=== PATIENT | female | born 1945 | race African-American/Black ===

== ENCOUNTER 2018-07-28 11:29 | Inpatient (IN) | payer MEDICARE, BC ==
[~2018-07-28] VITALS: Ht 165.1 cm; Wt 86.2 kg
[2018-07-28 11:36] VITALS: BP 138/85
[2018-07-28] MEDS ORDERED: Dicyclomine HCl 10mg/5ml oral soln ORAL ONE (12:30)
[2018-07-28] MEDS ORDERED: Mylanta II UD 30ml ORAL ONE (12:30)
[2018-07-28] MEDS ORDERED: Lidocaine 2% Visc 15ml soln ORAL ONE (12:30)
--- NOTE | 2018-07-28 12:30 | Emergency Room Report ---
History of Present Illness General Chief Complaint: Abdominal Pain Source: Patient (Margarita Rosas) Present Illness HPI 73-year-old female presents to the emergency department complaining of 8 out of 10 in severity cramping abdominal pain with associated nausea, vomiting and diarrhea. Patient denies blood in the vomit or stool. Patient denies black tarry stools, recent travel or ill contacts with similar symptoms. Patient denies fevers or chills. Patient states that she has been unable to keep anything down for approximately 3 days and her PCP sent her to the emergency department for evaluation. She reports only significant past medical history is high blood pressure. Patient denies dizziness, chest pain, shortness of breath, altered mental status, sudden severe headache, dysuria, hematuria, urinary frequency. (Margarita Rosas) Allergies: Coded Allergies: No Known Allergies (Unverified , 07/28/18) Patient History Past Medical History: see triage record, HTN Past Surgical History: none Pertinent Family History: none Now: No Reviewed Nursing Documentation: PMH: Agreed; PSxH: Agreed (Margarita Rosas) Nursing Documentation-PMH Hx Hypertension: Yes (Margarita Rosas) Review of Systems All Other Systems: negative except mentioned in HPI (Margarita Rosas) Physical Exam Vital Signs Date Time Temp Pulse Resp B/P (MAP) Pulse Ox O2 Delivery O2 Flow Rate FiO2 07/28/18 11:36 97.3 65 18 138/85 98 Room Air Sp02 EP Interpretation: reviewed, normal General Appearance: no apparent distress, alert, GCS 15, non-toxic Head: normocephalic, atraumatic Eyes: bilateral eye normal inspection, bilateral eye PERRL ENT: hearing grossly normal, normal voice Neck: full range of motion Respiratory: lungs clear, normal breath sounds, speaking full sentences Cardiovascular #1: regular rate, rhythm Gastrointestinal: normal bowel sounds, soft, non-distended, no guarding, other - RUQ TTP-mild Genitourinary: normal inspection, no CVA tenderness Musculoskeletal: back normal, gait/station normal, normal range of motion, non- tender Neurologic: alert, oriented x3, responsive, motor strength/tone normal, sensory intact, speech normal, grossly normal Psychiatric: judgement/insight normal Skin: normal color, no rash, warm/dry, well hydrated (Margarita Rosas) Medical Decision Making PA Attestation Dr. James is my supervising Physician whom patient management has been discussed with. (Margarita Rosas) Diagnostic Impression: Primary Impression: Dehydration, moderate Additional Impression: Abdominal pain Qualified Codes: R10.30 - Lower abdominal pain, unspecified ER Course 73-year-old female presents to the emergency department complaining of 8 out of 10 in severity cramping abdominal pain with associated nausea, vomiting and diarrhea. Patient denies blood in the vomit or stool. Patient denies black tarry stools, recent travel or ill contacts with similar symptoms. Patient denies fevers or chills. Patient states that she has been unable to keep anything down for approximately 3 days and her PCP sent her to the emergency department for evaluation. She reports only significant past medical history is high blood pressure. Patient denies dizziness, chest pain, shortness of breath, altered mental status, sudden severe headache, dysuria, hematuria, urinary frequency. Ddx considered but are not limited to Diverticulitis, acute appy, diarrhea,UC, PUD, GE, pancreatitis, gallstone, hypokalemia just to name a few. Vital signs: are WNL, pt. is afebrile H&PE are most consistent with dehydration secondary to GI loss- Vomiting and Diarrhea ORDERS: -CBC, CMP, lipase, UA: Unremarkable, Cr. of 1.4 and some protein in the urine. ED INTERVENTIONS: -- 1000NS, Zofran 4mg, and Pepcid 20mg PO DISPOSITION: at this time pt. will be admitted to Dr. Good for Dehydration. Dr. Good agreed to admit the pt. and to continue pt. care management. Labs Test 07/28/18 12:25 07/28/18 13:50 White Blood Count 7.2 K/UL (4.8-10.8) Red Blood Count 4.75 M/UL (4.20-5.40) Hemoglobin 14.1 G/DL (12.0-16.0) Hematocrit 42.0 % (37.0-47.0) Mean Corpuscular Volume 88 FL (80-99) Mean Corpuscular Hemoglobin 29.7 PG (27.0-31.0) Mean Corpuscular Hemoglobin Concent 33.6 G/DL (32.0-36.0) Red Cell Distribution Width 12.9 % (11.6-14.8) Platelet Count 200 K/UL (150-450) Mean Platelet Volume 7.3 FL (6.5-10.1) Neutrophils (%) (Auto) 41.1 % (45.0-75.0) Lymphocytes (%) (Auto) 45.0 % (20.0-45.0) Monocytes (%) (Auto) 10.4 % (1.0-10.0) Eosinophils (%) (Auto) 2.7 % (0.0-3.0) Basophils (%) (Auto) 0.8 % (0.0-2.0) Sodium Level 142 MMOL/L (136-145) Potassium Level 4.0 MMOL/L (3.5-5.1) Chloride Level 106 MMOL/L (98-107) Carbon Dioxide Level 27 MMOL/L (21-32) Anion Gap 9 mmol/L (5-15) Blood Urea Nitrogen 15 mg/dL (7-18) Creatinine 1.4 MG/DL (0.55-1.30) Estimat Glomerular Filtration Rate mL/min (>60) Glucose Level 103 MG/DL (74-106) Calcium Level 9.5 MG/DL (8.5-10.1) Total Bilirubin 0.9 MG/DL (0.2-1.0) Aspartate Amino Transf (AST/SGOT) 20 U/L (15-37) Alanine Aminotransferase (ALT/SGPT) 20 U/L (12-78) Alkaline Phosphatase 103 U/L (46-116) Total Protein 8.0 G/DL (6.4-8.2) Albumin 3.9 G/DL (3.4-5.0) Globulin 4.1 g/dL Albumin/Globulin Ratio 1.0 (1.0-2.7) Lipase 88 U/L (73-393) Urine Color Brown Urine Appearance Slightly cloudy Urine pH 5 (4.5-8.0) Urine Specific [place] 1.020 (1.005-1.035) Urine Protein 2+ (NEGATIVE) Urine Glucose (UA) Negative (NEGATIVE) Urine Ketones 1+ (NEGATIVE) Urine Blood Negative (NEGATIVE) Urine Nitrite Negative (NEGATIVE) Urine Bilirubin 1+ (NEGATIVE) Urine Ictotest Negative (NEGATIVE) Urine Urobilinogen 4 MG/DL (0.0-1.0) Urine Leukocyte Esterase 1+ (NEGATIVE) Urine RBC 0 /HPF (0 - 2) Urine WBC 0-2 /HPF (0 - 2) Urine Squamous Epithelial Cells Occasional /LPF Urine Bacteria None /HPF (NONE) (Margarita Rosas) ER Course This patient was discussed with Dr. Lucas who agreed with treatment plan. (Kwadwo James MD) Last Vital Signs Date Time Temp Pulse Resp B/P (MAP) Pulse Ox O2 Delivery O2 Flow Rate FiO2 07/28/18 11:36 97.3 65 18 138/85 98 Room Air (Margarita Rosas) Disposition: ADMITTED INPATIENT Condition: Serious Margarita Rosas Jul 28, 2018 12:30 Kwadwo James MD Jul 28, 2018 21:36
--- NOTE | 2018-07-28 13:01 | NUR ---
ED Nurse Note: attempted to collect urine, patient stated that she does not feel the urge to go now. NS bolus going in, will try again.
[2018-07-28 13:11] LABS: ANION GAP 9 mmol/L (5-15); BLOOD UREA NITROGEN 15 mg/dL (7-18); CALCIUM 9.5 MG/DL (8.5-10.1); CARBON DIOXIDE 27 MMOL/L (21-32); CHLORIDE 106 MMOL/L (98-107); CREATININE 1.4 MG/DL (0.55-1.30); SODIUM 142 MMOL/L (136-145)
[2018-07-28 13:16] LABS: ALANINE AMINOTRANSFERASE 20 U/L (12-78); ALBUMIN 3.9 G/DL (3.4-5.0); ALKALINE PHOSPHATASE 103 U/L (46-116); ASPARTATE AMINO TRANSFERASE 20 U/L (15-37); BASOPHILS % (AUTO) 0.8 % (0.0-2.0); BILIRUBIN,TOTAL 0.9 MG/DL (0.2-1.0); EOSINOPHILS % (AUTO) 2.7 % (0.0-3.0); HEMOGLOBIN 14.1 G/DL (12.0-16.0); MEAN CORPUSCULAR VOLUME 88 FL (80-99); MONOCYTES % (AUTO) 10.4 % (1.0-10.0); NEUTROPHILS % (AUTO) 41.1 % (45.0-75.0); PLATELET COUNT 200 K/UL (150-450); RED BLOOD COUNT 4.75 M/UL (4.20-5.40); RED CELL DISTRIBUTION WIDTH 12.9 % (11.6-14.8); WHITE BLOOD COUNT 7.2 K/UL (4.8-10.8)
[2018-07-28 13:59] LABS: APPEARANCE,URINE SLIGHTLY CLOUDY; BILIRUBIN, URINE 1+ (NEGATIVE); COLOR,URINE BROWN; GLUCOSE, URINE (UA) NEGATIVE (NEGATIVE); KETONES,URINE 1+ (NEGATIVE); LEUKOCYTE ESTERASE ,URINE 1+ (NEGATIVE); NITRITE,URINE NEGATIVE (NEGATIVE); PH,URINE 5 (4.5-8.0); PROTEIN,URINE 2+ (NEGATIVE); UROBILINOGEN,URINE 4 MG/DL (0.0-1.0)
--- NOTE | 2018-07-28 15:15 | NUR ---
ED Nurse Note: belonging list checked and done, signed by the patient. her cane was taken home by her daughter. called [facility], spoke with Galileo HAMILTON, the nurse is going to be Alejo HAMILTON, she is on lunch, will call back later.
--- NOTE | 2018-07-28 15:59 | NUR ---
ED Nurse Note: report given to Dimple HAMILTON Addendum: 07/28/18 at 1950 by MAK ROBERT Musa. Patient went up to [facility]E accompanied by PRASHANTH Coffman
[2018-07-28] MEDS ORDERED: ATENOLOL25 MG ORAL (16:04)
[2018-07-28] MEDS ORDERED: PRAVACHOL20 MG ORAL (16:04)
[2018-07-28] MEDS ORDERED: AMLODIPINE BES2.5 MG ORAL (16:05)
[2018-07-28 17:00] VITALS: BP 137/78
--- NOTE | 2018-07-28 17:42 | NUR ---
NURSE NOTES: received patient A/A/Ox4, verbally responsive from ED via wheelchair. admission profile and personal belongings noted. patient vomitted 2x upon arriving. Instructed to refrain from drinking soda and consuming crackers until we hear from PMD. Patient brought with her subway drink (soda) and stated that she consumed some crackers prior arriving on the unit and started vomitting with moderate amount. skin is intact. No acute resp distress noted. NO c/o pain/discomfort noted. awaiting for Dr Good for admitting orders. will cont to monitor
--- NOTE | 2018-07-28 18:10 | General Progress Note ---
Assessment/Plan Assessment/Plan Assessment - N/V/D - ? gastroenteritis - RA - SIBO - HTN - Obesity - mild diverticulosis - Fibromyalgia - chronic constipation - h/o anemia - smoking history Recommendations - po as tolerated - check stool studies - anti- emetics - IV hydration Subjective Allergies: Coded Allergies: No Known Allergies (Unverified , 07/28/18) Objective Last 24 Hour Vital Signs Date Time Temp Pulse Resp B/P (MAP) Pulse Ox O2 Delivery O2 Flow Rate FiO2 07/28/18 17:22 Room Air 07/28/18 17:20 97.3 68 18 138/85 98 Room Air 07/28/18 12:56 65 18 Room Air 07/28/18 11:36 97.3 65 18 138/85 98 Room Air 07/28/18 11:36 97.3 65 18 138/85 98 Room Air Laboratory Tests 07/28/18 12:25: White Blood Count 7.2, Red Blood Count 4.75, Hemoglobin 14.1, Hematocrit 42.0, Mean Corpuscular Volume 88, Mean Corpuscular Hemoglobin 29.7, Mean Corpuscular Hemoglobin Concent 33.6, Red Cell Distribution Width 12.9, Platelet Count 200, Mean Platelet Volume 7.3, Neutrophils (%) (Auto) 41.1L, Lymphocytes (%) (Auto) 45.0, Monocytes (%) (Auto) 10.4H, Eosinophils (%) (Auto) 2.7, Basophils (%) ( Auto) 0.8, Sodium Level 142, Potassium Level 4.0, Chloride Level 106, Carbon Dioxide Level 27, Anion Gap 9, Blood Urea Nitrogen 15, Creatinine 1.4H, Estimat Glomerular Filtration Rate , Glucose Level 103, Calcium Level 9.5, Total Bilirubin 0.9, Aspartate Amino Transf (AST/SGOT) 20, Alanine Aminotransferase ( ALT/SGPT) 20, Alkaline Phosphatase 103, Total Protein 8.0, Albumin 3.9, Globulin 4.1, Albumin/Globulin Ratio 1.0, Lipase 88 07/28/18 13:50: Urine Color Brown, Urine Appearance Slightly cloudy, Urine pH 5, Urine Specific [place] 1.020, Urine Protein 2+H, Urine Glucose (UA) Negative, Urine Ketones 1+H , Urine Blood Negative, Urine Nitrite Negative, Urine Bilirubin 1+H, Urine Ictotest Negative, Urine Urobilinogen 4H, Urine Leukocyte Esterase 1+H, Urine RBC 0, Urine WBC 0-2, Urine Squamous Epithelial Cells Occasional, Urine Bacteria None Height (Feet): 5 Height (Inches): 4.00 Weight (Pounds): 190 Jesus Zuleta MD Jul 28, 2018 18:10
--- NOTE | 2018-07-28 18:22 | NUR ---
NURSE NOTES: admission orders obtained. patient is calm and resting in bed comfortably. will cont to monitor.
--- NOTE | 2018-07-28 19:19 | NUR ---
HAND-OFF: Report given to
--- NOTE | 2018-07-28 19:30 | NUR ---
NURSE NOTES: Received patient in no apparent distress. A&OX4. IV site patent and intact. C/o abdominal pain, 02/06. Bed in lowest position. Call light within reach. Will continue to monitor.
[2018-07-28 20:00] VITALS: BP 144/61
--- NOTE | 2018-07-28 20:30 | Consultation ---
DATE OF CONSULTATION: 07/28/2018 NOTE: "POOR AUDIO QUALITY" GASTROENTEROLOGY CONSULTATION CONSULTING PHYSICIAN: Jesus Zuleta M.D. REFERRING PHYSICIAN: 1. Maurice Good M.D. 2. Luciano Kim M.D. CHIEF COMPLAINT: I was asked to see this patient by Dr. Maurice Good and Dr. Luciano Kim, for evaluation of abdominal symptoms. HISTORY OF PRESENT ILLNESS: The patient is a pleasant 73-year-old woman, who was in her usual state of health until about 4 days ago when she started having bouts of nausea, vomiting, and diarrhea. The patient called in stating that she could not keep any food down or medicines down and therefore, she was advised to go to the nearest emergency room and now she has been admitted to the hospital. The patient did feel some lightheadedness because of vomiting. She states her daughter had some abdominal symptoms, but they were mild and resolved. She felt some chills, but no fever. She has lost 6 pounds in the past 4 days. PAST MEDICAL HISTORY: Remarkable for history of rheumatoid arthritis hypertension, obesity, mild diverticulosis, fibromyalgia, chronic constipation, history of anemia. PAST SURGICAL HISTORY: Status post left knee replacement, history of left finger surgery, status post cholecystectomy, status post partial hysterectomy, and left salpingo-oophorectomy. ALLERGIES: None. FAMILY HISTORY: Positive for colon cancer in mother. SOCIAL HISTORY: The patient is a . She has 4 children. She has rdfumja-lrng-h-day smoking history, but she quit this. She does not drink alcohol. REVIEW OF SYSTEMS: Otherwise negative. MEDICATIONS: Amlodipine 10 mg p.o. b.i.d., bupropion for smoking cessation 150 mg p.o. b.i.d., Cimzia 1 injection monthly, enalapril 10 mg p.o. b.i.d., Amitiza 8 mcg p.o. b.i.d. PHYSICAL EXAMINATION: GENERAL: This is a pleasant woman seen in the emergency room. HEENT: Normocephalic and atraumatic. Sclerae anicteric. Oropharynx clear. NECK: Supple. CHEST: Clear to auscultation. CARDIOVASCULAR: Revealed regular rate. ABDOMEN: Soft. Good bowel sounds. EXTREMITIES: Revealed no edema. LABORATORY DATA: Noted. ASSESSMENT: This patient presents with nausea, vomiting, diarrhea, and dehydration over the past 4 days. Given the acuity of her symptoms, the most typical diagnosis will be gastroenteritis, which is managed conservatively, however, she also has immunosuppression. Therefore, her stools are to be checked for various pathogens including Salmonella and Campylobacter. She is somewhat stable now, however, and therefore she can be managed off of antibiotics. RECOMMENDATIONS: 1. IV fluids. 2. Oral diet as tolerated to check stool evaluation. 3. We will hold off on antibiotics. Thank you for asking me to participate in the care of this patient. Jesus Zuleta M.D. DR: Jackeline JOB#: [id number] CC: KENDALL
[2018-07-28] MEDS: Norco 5mg/325mg tab ORAL PRN (20:31)
[2018-07-28] MEDS: Heparin 5000 units/ml inj SUBQ SCH (20:39)
[2018-07-28] MEDS: D5 1/2NS 1,000 ML IV SCH (20:41)
--- NOTE | 2018-07-28 20:47 | NUR ---
NURSE NOTES: Patient requested IV pain medication instead of oral pain medication due to nausea & vomiting. Call Dr. Good, obtained order of Morphine 2mg IVP prn q4hrs.
[2018-07-28] MEDS ORDERED: Morphine Sulfate 4mg/ml Inj (IV/IM USE ONLY) IVP PRN (21:00)
[2018-07-29] VITALS: BP 124/58
[2018-07-29 04:00] VITALS: BP 123/62
--- NOTE | 2018-07-29 07:11 | NUR ---
HAND-OFF: Report given to Iliana JONES.
[2018-07-29 07:15] LABS: BASOPHILS % (AUTO) 0.6 % (0.0-2.0); EOSINOPHILS % (AUTO) 3.6 % (0.0-3.0); HEMATOCRIT 35.7 % (37.0-47.0); HEMOGLOBIN 12.1 G/DL (12.0-16.0); LYMPHOCYTES % (AUTO) 53.1 % (20.0-45.0); MEAN CORPUSCULAR VOLUME 88 FL (80-99); MONOCYTES % (AUTO) 11.5 % (1.0-10.0); NEUTROPHILS % (AUTO) 31.2 % (45.0-75.0); PLATELET COUNT 166 K/UL (150-450); RED BLOOD COUNT 4.06 M/UL (4.20-5.40); RED CELL DISTRIBUTION WIDTH 12.9 % (11.6-14.8); WHITE BLOOD COUNT 5.8 K/UL (4.8-10.8)
[2018-07-29 08:09] VITALS: BP 153/83
[2018-07-29 08:15] LABS: ALBUMIN 3.2 G/DL (3.4-5.0); ALBUMIN/GLOBULIN RATIO 0.9 (1.0-2.7); ALKALINE PHOSPHATASE 88 U/L (46-116); ANION GAP 3 mmol/L (5-15); ASPARTATE AMINO TRANSFERASE 19 U/L (15-37); BILIRUBIN,TOTAL 0.8 MG/DL (0.2-1.0); BLOOD UREA NITROGEN 7 mg/dL (7-18); CALCIUM 8.9 MG/DL (8.5-10.1); CARBON DIOXIDE 29 MMOL/L (21-32); CHLORIDE 110 MMOL/L (98-107); CREATININE 1.3 MG/DL (0.55-1.30); PHOSPHORUS 3.6 MG/DL (2.5-4.9); SODIUM 142 MMOL/L (136-145)
[2018-07-29] MEDS: D5 1/2NS 1,000 ML IV SCH ×2 (08:19→21:55)
[2018-07-29] MEDS: Atenolol 25mg tab ORAL SCH ×2 (08:19→17:01)
[2018-07-29] MEDS: Heparin 5000 units/ml inj SUBQ SCH ×2 (08:24→21:54)
[2018-07-29 08:39] LABS: ALANINE AMINOTRANSFERASE 20 U/L (12-78)
[2018-07-29 12:08] VITALS: BP 153/68
[2018-07-29] MEDS ORDERED: Isovue-300 100ml vial INJ PRN (13:15)
--- NOTE | 2018-07-29 13:17 | History & Physical ---
History and Physical History & Physicial Dictated for Int Med-Dr Good no. [id number]. Salvador Rachel MD Jul 29, 2018 13:17
--- NOTE | 2018-07-29 14:00 | NUR ---
NURSE NOTES: received patient, report given by ROBERT Richardson. Patient is in bed, awake, accompanied by family members. Patient receive IVF through LAC access, no sign of leakage or infiltration. Bed is locked at the lowest position possible, call light within easy reach, siderails up x2. Will continue to monitor patient and follow up with the plan of care.
[2018-07-29 15:53] VITALS: BP 146/70
--- NOTE | 2018-07-29 16:30 | History and Physical Report ---
DATE OF ADMISSION: 07/28/2018 CHIEF COMPLAINT: The patient is a 73-year-old female, who presents with chief complaint of nausea, vomiting, diarrhea, and abdominal pain. HISTORY OF PRESENT ILLNESS: It began on 07/24/2018. The patient began to experience nausea and vomiting. The patient is unable to tolerate liquids or solids. The patient states she vomits everything that she eats or drinks. The patient also has watery diarrhea. The patient has diarrhea twice daily. The patient also complains of abdominal cramping and pain. Abdominal pain seems to be localized to the right lower quadrant. The patient presented to [facility]. The patient was admitted for nausea, vomiting, diarrhea, and right lower quadrant pain. REVIEW OF SYSTEMS: CONSTITUTIONAL: The patient denies weight loss or weight gain. The patient denies fevers or chills. HEENT: The patient denies ear or throat pain. The patient denies headache. CARDIOVASCULAR: The patient denies palpitations or chest pain. CHEST: The patient denies wheeze or shortness of breath. ABDOMEN: The patient complains of nausea, vomiting, diarrhea, and abdominal pain as above. The patient denies constipation. GENITOURINARY: The patient denies dysuria or increased frequency of urination. NEUROMUSCULAR: The patient denies seizures or generalized weakness. PAST MEDICAL HISTORY: Significant for hypertension. PAST SURGICAL HISTORY: Significant for: 1. Open cholecystectomy 40 years ago. 2. Bilateral knee replacement. 3. Reconstruction of the left knee. 4. Lumbar laminectomy. CURRENT MEDICATIONS: 1. Amlodipine 2.5 mg p.o. daily. 2. Atenolol 25 mg p.o. twice daily. 3. Pravachol 20 mg p.o. nightly. ALLERGIES: No known drug allergies. SOCIAL HISTORY: The patient is a and lives alone. The patient denies tobacco use, having quit in February 2018. The patient admits to social alcohol use. PHYSICAL EXAMINATION: VITAL SIGNS: Temperature 97.8, respirations 19, pulse 54 to 57, and blood pressure 123 to 153 over 62 to 83. GENERAL: The patient is a well-developed and well-nourished female, in no apparent distress. HEENT: Eyes, pupils are equal and responsive to light and accommodation. Extraocular movements are intact. NECK: Supple. No lymphadenopathy. CHEST: Lungs are clear to auscultation bilaterally without wheezes or rales. CARDIOVASCULAR: Regular rhythm and rate. S1-S2 are normal without murmurs, rubs, or gallops. ABDOMEN: Soft, nondistended with decreased bowel sounds. There is tenderness to palpation to right lower quadrant. No evidence of rebound or guarding noted. EXTREMITIES: Negative for clubbing, cyanosis, or edema. RECTAL/GENITAL: Refused. NEUROLOGIC: Cranial nerves II through XII are grossly intact without focal deficits. Motor strength is 5/5 bilaterally. Deep tendon reflexes are 2+ plantar. LABORATORY STUDIES: WBC 7.3, hemoglobin 14.1, hematocrit 42.0, and platelets 200,000. Sodium 142, potassium 4.0, chloride 106, CO2 27, BUN 15, and creatinine 1.4. Glucose 103. Liver function tests are within normal limits. Urinalysis showed 2+ protein, 1+ ketones, 1+ bilirubin, 4+ urobilinogen, 1+ leukocyte esterase with 0 to 2 wbc's. ASSESSMENT: This is a 73-year-old female with: 1. Abdominal pain. 2. Nausea and vomiting. 3. Diarrhea. 4. Right lower quadrant pain. 5. Hypertension. TREATMENT: 1. Abdominal pain/nausea/vomiting/diarrhea. A Gastroenterology consultation has been obtained with Dr. Zuleta. The patient is currently receiving intravenous Zofran for nausea and vomiting. Stool cultures are pending. We will follow recommendations of Gastroenterology. 2. Right lower quadrant pain. The patient's white count is within normal limits. Appendicitis has been ruled out with white count. A CT scan of the abdomen and pelvis is pending. 3. Hypertension. Continue amlodipine and atenolol as above. Salvador Rachel M.D. DR: BLANQUITA JOB#: [id number] CC:
--- NOTE | 2018-07-29 18:47 | General Progress Note ---
Assessment/Plan Assessment/Plan Assessment - N/V/D - ? gastroenteritis - RA - SIBO - HTN - Obesity - mild diverticulosis - Fibromyalgia - chronic constipation - h/o anemia - smoking history Recommendations - po as tolerated - check stool studies - still pending - add PPI IV - anti- emetics - IV hydration Subjective Allergies: Coded Allergies: No Known Allergies (Unverified , 07/28/18) Subjective vomited again this am no further diarrhea no pain on clears Objective Last 24 Hour Vital Signs Date Time Temp Pulse Resp B/P (MAP) Pulse Ox O2 Delivery O2 Flow Rate FiO2 07/29/18 17:01 71 146/70 07/29/18 15:53 97.8 71 18 146/70 (95) 97 07/29/18 12:08 97.3 56 19 153/68 (96) 98 07/29/18 10:37 98.2 07/29/18 09:00 Room Air 07/29/18 08:19 57 153/83 07/29/18 08:19 57 153/83 07/29/18 08:09 98.2 57 18 153/83 (106) 99 07/29/18 04:00 97.8 54 19 123/62 (82) 98 07/29/18 00:00 97.7 56 18 124/58 (80) 97 07/28/18 21:14 Room Air 07/28/18 21:00 Room Air 07/28/18 20:00 97.9 54 18 144/61 (88) 98 Intake and Output 07/28/18 07/29/18 18:59 06:59 Intake Total 750 ml Balance 750 ml IV Total 750 ml # Voids 4 Laboratory Tests 07/29/18 05:55: White Blood Count 5.8, Red Blood Count 4.06L, Hemoglobin 12.1, Hematocrit 35.7L , Mean Corpuscular Volume 88, Mean Corpuscular Hemoglobin 29.9, Mean Corpuscular Hemoglobin Concent 34.0, Red Cell Distribution Width 12.9, Platelet Count 166, Mean Platelet Volume 7.1, Neutrophils (%) (Auto) 31.2L, Lymphocytes ( %) (Auto) 53.1H, Monocytes (%) (Auto) 11.5H, Eosinophils (%) (Auto) 3.6H, Basophils (%) (Auto) 0.6, Sodium Level 142, Potassium Level 4.0, Chloride Level 110H, Carbon Dioxide Level 29, Anion Gap 3L, Blood Urea Nitrogen 7, Creatinine 1.3, Estimat Glomerular Filtration Rate , Glucose Level 94, Calcium Level 8.9, Phosphorus Level 3.6, Magnesium Level 1.9, Total Bilirubin 0.8, Aspartate Amino Transf (AST/SGOT) 19, Alanine Aminotransferase (ALT/SGPT) 20, Alkaline Phosphatase 88, Total Protein 6.7, Albumin 3.2L, Globulin 3.5, Albumin/Globulin Ratio 0.9L Height (Feet): 5 Height (Inches): 4.00 Weight (Pounds): 190 Jesus Zuleta MD Jul 29, 2018 18:47
--- NOTE | 2018-07-29 19:02 | NUR ---
NURSE NOTES: Pt resting in bed, awake and alert x4, no s/s of acute distress noted, breathing even and unlabored to room air. no complaining of nausea, bed to lowest position, call light within reach, will continue to monitor.
[2018-07-29] MEDS: Pantoprazole Inj IVP SCH (19:22)
--- NOTE | 2018-07-29 19:39 | NUR ---
HAND-OFF: Report given to ALFONSO Garber.
[2018-07-29 20:00] VITALS: BP 127/63
--- NOTE | 2018-07-29 20:52 | NUR ---
CASE MANAGEMENT: INITIAL REVIEW 07/28/2018 73 YO F PRESENTED TO OUR ED FROM HOME CC: ABD PAIN PMHx: HTN. SI:DEHYDRATION. UNABLE TO COLLECT URINE. T 97.3 HR 65 RR 18 B/P 138/85 SATS 98% ON RA CR 1.4 IS: ZOFRAN IV X1 PEPCID IV X1 NS BOLUS X1 LIDOCAINE PO X1 BENTYL PO X1 MYLANTA PO X1 PATIENT ADMITTED TO MED/SURG 07/28/2018 @ 1412 DCP: PATIENT TO BE DISCHARGED TO HOME ONCE MEDICALLY CLEARED. PLAN OF CARE: GI CONSULT 07/29/2018 SI:DEHYDRATION. UNABLE TO COLLECT URINE. T 97.8 HR 71 RR 18 B/P 146/70 SATS 97% ON RA CL 110 IS: IVF @ 75 mL/HR ATENOLOL PO BID NORVASC PO QD PROTONIX IV QD MED/SURG STATUS DCP: PATIENT TO BE DISCHARGED TO HOME ONCE MEDICALLY CLEARED. PLAN OF CARE: GI CONSULT >>>CHECK STOOL STUDIES
[2018-07-30] VITALS: BP 140/70
--- NOTE | 2018-07-30 07:43 | NUR ---
HAND-OFF: Report given to ALFONSO Tompkins.
[2018-07-30 07:46] LABS: HEMATOCRIT 38.2 % (37.0-47.0); HEMOGLOBIN 13.3 G/DL (12.0-16.0); MEAN CORPUSCULAR VOLUME 87 FL (80-99); PLATELET COUNT 153 K/UL (150-450); RED BLOOD COUNT 4.38 M/UL (4.20-5.40); RED CELL DISTRIBUTION WIDTH 13.2 % (11.6-14.8)
--- NOTE | 2018-07-30 08:00 | NUR ---
NURSE NOTES: Patient is alert and oriented,IV fluids infusing as ordered.Patient is NPO for schedule test today.No complaints at this time.Call light within reach.
[2018-07-30 08:06] LABS: ANION GAP 7 mmol/L (5-15); BLOOD UREA NITROGEN 7 mg/dL (7-18); CALCIUM 9.3 MG/DL (8.5-10.1); CARBON DIOXIDE 27 MMOL/L (21-32); CHLORIDE 108 MMOL/L (98-107); CREATININE 1.2 MG/DL (0.55-1.30); POTASSIUM 3.8 MMOL/L (3.5-5.1); SODIUM 142 MMOL/L (136-145)
[2018-07-30 08:55] VITALS: BP 142/72
[2018-07-30] MEDS: Atenolol 25mg tab ORAL SCH ×2 (09:00→21:21)
[2018-07-30] MEDS: Pantoprazole Inj IVP SCH (09:09)
[2018-07-30] MEDS: Heparin 5000 units/ml inj SUBQ SCH ×2 (09:11→21:00)
--- NOTE | 2018-07-30 12:08 | Diagnostic Imaging Report ---
Clinical Indication: Nausea, vomiting, diarrhea, and abdominal pain Technique: Patient given oral contrast. IV administration nonionic contrast. Venous phase spiral acquisition obtained through the abdomen and pelvis. Multiplanar reconstructions were generated. Total dose length product 876.05 mGycm. CTDIvol(s) 17.73 mGy. Dose reduction achieved using automated exposure control Comparison: 11/02/2012 Findings: The appendix is not definitely identified, but no findings to suggest acute appendicitis are evident. There is colonic diverticulosis. No evidence of diverticulitis. Contrast is seen throughout the entirety of the small bowel and into the ascending colon. No small bowel distention or small bowel wall thickening. There is trace free fluid in the pelvis. No free intraperitoneal gas is evident. The distal esophagus, stomach, duodenum are unremarkable. The liver is unremarkable. The gallbladder is surgically absent. No biliary ductal dilatation. The pancreas, spleen, adrenals are unremarkable. There are numerous renal cysts bilaterally. There are also bilateral subcentimeter low-attenuation renal lesions which are too small to characterize. No renal or ureteral calculi, hydronephrosis, or hydroureter. The uterus is absent, presumably postsurgically. No pelvic mass or adenopathy. The included lung bases demonstrate a 4 mm nodule at the left lung base, image 10 of series 7, also evident previously and unchanged. There is some atelectasis or scarring at the posterior medial right lung base. The bones demonstrate degenerative spondylosis changes. There is also fusion hardware bridging S1-L2. Impression: No definite acute process. No evidence of small bowel obstruction Trace free pelvic fluid. Of uncertain significance but not physiologic in a postmenopausal female Colonic diverticulosis. No evidence of diverticulitis Surgically absent uterus and gallbladder Stable and therefore presumed benign 4 mm left basilar lung nodule Bilateral renal cysts. Bilateral subcentimeter low-attenuation renal lesions, too small to characterize, most likely benign simple cysts. No further follow-up necessary Incidental findings as noted, including basilar pulmonary atelectasis, degenerative spondylosis, evidence of spinal fusion surgery The CT scanner at [facility] is accredited by the [employer] and the scans are performed using protocols designed to limit radiation exposure to as low as reasonably achievable to attain images of sufficient resolution adequate for diagnostic evaluation.
[2018-07-30 12:26] VITALS: BP 147/71
[2018-07-30] MEDS: D5 1/2NS 1,000 ML IV SCH (12:39)
--- NOTE | 2018-07-30 16:09 | Internal Med Progress Note ---
Subjective Date of Service: Jul 30, 2018 Physician Name Salvador Rachel Attending Physician Maurice Good MD Current Medications Medications (Trade) Dose Ordered Sig/Dominga Route PRN Reason Start Time Stop Time Status Last Admin Dose Admin Acetaminophen (Tylenol) 650 mg Q6H PRN ORAL Mild Pain/Temp > 100.5 07/28/18 18:15 08/27/18 18:14 Acetaminophen/ Hydrocodone Bitart ([place] 5/325) 1 tab Q6H PRN ORAL Mod-severe Pain (Pain 4-10) 07/28/18 18:15 08/04/18 18:14 07/28/18 20:31 Amlodipine Besylate (Norvasc) 2.5 mg DAILY ORAL 07/29/18 09:00 08/28/18 08:59 07/30/18 12:36 Atenolol (Tenormin) 25 mg BID ORAL 07/29/18 09:00 08/28/18 08:59 07/29/18 17:01 Barium Sulfate (Readi-Cat 2) 450 ml NOW PRN ORAL Radiology Procedure 07/29/18 13:15 07/31/18 13:10 07/30/18 09:24 Dextrose/Sodium Chloride 1,000 ml @ 75 mls/hr [id number] IV 07/28/18 19:45 08/27/18 19:44 07/30/18 12:39 Heparin Sodium (Porcine) (Heparin 5000 units/ml) 5,000 units EVERY 12 HOURS SUBQ 07/28/18 21:00 08/27/18 20:59 07/30/18 09:11 Morphine Sulfate (Morphine Sulfate) 2 mg Q4H PRN IVP Severe Pain (Pain Scale 7-10) 07/28/18 21:00 08/04/18 20:59 07/29/18 10:07 Ondansetron HCl (Zofran) 4 mg EVERY 4 HOURS PRN IVP Nausea & Vomiting 07/28/18 18:15 08/27/18 18:14 07/28/18 20:28 Pantoprazole (Protonix) 40 mg DAILY IVP 07/29/18 18:47 08/28/18 18:46 07/30/18 09:09 Allergies: Coded Allergies: No Known Allergies (Unverified , 07/28/18) ROS Limited/Unobtainable: No Constitutional: Reports: no symptoms HEENT: Reports: no symptoms Cardiovascular: Reports: no symptoms Respiratory: Reports: no symptoms Gastrointestinal/Abdominal: Reports: diarrhea, nausea, vomiting Genitourinary: Reports: no symptoms Neurologic/Psychiatric: Reports: no symptoms Subjective 73 YO F admitted with abdominal pain, nausea and diarrhea. Cover for Int Zurdo Good Objective Last Vital Signs Date Time Temp Pulse Resp B/P (MAP) Pulse Ox O2 Delivery O2 Flow Rate FiO2 07/30/18 12:36 59 147/71 07/30/18 12:26 97.2 18 95 07/30/18 09:00 Room Air Laboratory Tests Test 07/30/18 06:45 White Blood Count 5.0 K/UL (4.8-10.8) Red Blood Count 4.38 M/UL (4.20-5.40) Hemoglobin 13.3 G/DL (12.0-16.0) Hematocrit 38.2 % (37.0-47.0) Mean Corpuscular Volume 87 FL (80-99) Mean Corpuscular Hemoglobin 30.4 PG (27.0-31.0) Mean Corpuscular Hemoglobin Concent 34.8 G/DL (32.0-36.0) Red Cell Distribution Width 13.2 % (11.6-14.8) Platelet Count 153 K/UL (150-450) Mean Platelet Volume 7.4 FL (6.5-10.1) Neutrophils (%) (Auto) % (45.0-75.0) Lymphocytes (%) (Auto) % (20.0-45.0) Monocytes (%) (Auto) % (1.0-10.0) Eosinophils (%) (Auto) % (0.0-3.0) Basophils (%) (Auto) % (0.0-2.0) Differential Total Cells Counted 100 Neutrophils % (Manual) 32 % (45-75) L Lymphocytes % (Manual) 54 % (20-45) H Monocytes % (Manual) 13 % (1-10) H Eosinophils % (Manual) 1 % (0-3) Basophils % (Manual) 0 % (0-2) Band Neutrophils 0 % (0-8) Platelet Estimate Adequate Platelet Morphology Normal Red Blood Cell Morphology Normal Sodium Level 142 MMOL/L (136-145) Potassium Level 3.8 MMOL/L (3.5-5.1) Chloride Level 108 MMOL/L (98-107) H Carbon Dioxide Level 27 MMOL/L (21-32) Anion Gap 7 mmol/L (5-15) Blood Urea Nitrogen 7 mg/dL (7-18) Creatinine 1.2 MG/DL (0.55-1.30) Estimat Glomerular Filtration Rate mL/min (>60) Glucose Level 95 MG/DL (74-106) Calcium Level 9.3 MG/DL (8.5-10.1) Intake and Output 07/29/18 07/30/18 19:00 07:00 Intake Total 1645 ml 900 ml Balance 1645 ml 900 ml Intake Oral 120 ml IV Total 675 ml 900 ml Other 850 ml # Voids 2 2 Objective PHYSICAL EXAMINATION: GENERAL: The patient is a well-developed and well-nourished female, in no apparent distress. HEENT: Eyes, pupils are equal and responsive to light and accommodation. Extraocular movements are intact. NECK: Supple. No lymphadenopathy. CHEST: Lungs are clear to auscultation bilaterally without wheezes or rales. CARDIOVASCULAR: Regular rhythm and rate. S1-S2 are normal without murmurs, rubs, or gallops. ABDOMEN: Soft, nondistended with decreased bowel sounds. There is tenderness to palpation to right lower quadrant. No evidence of rebound or guarding noted. EXTREMITIES: Negative for clubbing, cyanosis, or edema. RECTAL/GENITAL: Refused. NEUROLOGIC: Cranial nerves II through XII are grossly intact without focal deficits. Motor strength is 5/5 bilaterally. Deep tendon reflexes are 2+ plantar. Assessment/Plan Assessment/Plan ASSESSMENT: This is a 73-year-old female with: 1. Abdominal pain. 2. Nausea and vomiting. 3. Diarrhea. 4. Right lower quadrant pain. 5. Hypertension. TREATMENT: 1. Abdominal pain/nausea/vomiting/diarrhea. A Gastroenterology consultation has been obtained with Dr. Zuleta. The patient is currently receiving intravenous Zofran for nausea and vomiting. Stool cultures are pending. We will follow recommendations of Gastroenterology. 2. Right lower quadrant pain. The patient's white count is within normal limits. Appendicitis has been ruled out with white count. A CT scan of the abdomen showed diverticulosis without diverticulitis 3. Hypertension. Continue amlodipine and atenolol as above. Salvador Rachel MD Jul 30, 2018 16:09
[2018-07-30 16:15] VITALS: BP 147/73
--- NOTE | 2018-07-30 19:00 | NUR ---
NURSE NOTES: Patient resting,no complaints at this time.Call light within reach.
--- NOTE | 2018-07-30 19:25 | NUR ---
HAND-OFF: Report given to DESTINY HAMILTON.
--- NOTE | 2018-07-30 19:40 | NUR ---
NURSE NOTES: Pt resting in bed, awake and alert x4, no s/s of acute distress noted, no complaining of pain, breathing even and unlabored to room air. IV fluids running at 75ml/hr. Bed to lowest position, call light within reach, will continue to monitor.
--- NOTE | 2018-07-30 19:58 | General Progress Note ---
Assessment/Plan Assessment/Plan Assessment - N/V/D - ? gastroenteritis, resolving - RA - SIBO - HTN - Obesity - mild diverticulosis - Fibromyalgia - chronic constipation - h/o anemia - smoking history Recommendations - advance po as tolerated - check stool studies - still pending - PPI - anti- emetics - IV hydration Subjective Allergies: Coded Allergies: No Known Allergies (Unverified , 07/28/18) Subjective No further vomiting no further diarrhea no pain on clears Objective Last 24 Hour Vital Signs Date Time Temp Pulse Resp B/P (MAP) Pulse Ox O2 Delivery O2 Flow Rate FiO2 07/30/18 16:15 97.9 64 18 147/73 (97) 07/30/18 12:36 59 147/71 07/30/18 12:26 97.2 59 18 147/71 (96) 95 07/30/18 09:00 Room Air 07/30/18 09:00 52 142/72 07/30/18 08:55 97.9 52 18 142/72 (95) 98 07/30/18 00:00 98.0 57 19 140/70 (93) 95 07/29/18 21:00 Room Air 07/29/18 20:00 97.9 55 18 127/63 (84) 94 Intake and Output 07/29/18 07/30/18 19:00 07:00 Intake Total 1645 ml 900 ml Balance 1645 ml 900 ml Intake Oral 120 ml IV Total 675 ml 900 ml Other 850 ml # Voids 2 2 Laboratory Tests 07/30/18 06:45: White Blood Count 5.0, Red Blood Count 4.38, Hemoglobin 13.3, Hematocrit 38.2, Mean Corpuscular Volume 87, Mean Corpuscular Hemoglobin 30.4, Mean Corpuscular Hemoglobin Concent 34.8, Red Cell Distribution Width 13.2, Platelet Count 153, Mean Platelet Volume 7.4, Neutrophils (%) (Auto) , Lymphocytes (%) (Auto) , Monocytes (%) (Auto) , Eosinophils (%) (Auto) , Basophils (%) (Auto) , Differential Total Cells Counted 100, Neutrophils % (Manual) 32L, Lymphocytes % (Manual) 54H, Monocytes % (Manual) 13H, Eosinophils % (Manual) 1, Basophils % ( Manual) 0, Band Neutrophils 0, Platelet Estimate Adequate, Platelet Morphology Normal, Red Blood Cell Morphology Normal, Sodium Level 142, Potassium Level 3.8 , Chloride Level 108H, Carbon Dioxide Level 27, Anion Gap 7, Blood Urea Nitrogen 7, Creatinine 1.2, Estimat Glomerular Filtration Rate , Glucose Level 95, Calcium Level 9.3 Height (Feet): 5 Height (Inches): 4.00 Weight (Pounds): 190 Jesus Zuleta MD Jul 30, 2018 19:58
[2018-07-30 20:00] VITALS: BP 154/70
[2018-07-31] VITALS: BP 148/69
[2018-07-31] MEDS: D5 1/2NS 1,000 ML IV SCH ×2 (01:22→12:54)
[2018-07-31 04:00] VITALS: BP 139/69
--- NOTE | 2018-07-31 07:18 | NUR ---
NURSE NOTES: Patient alert x4, in room air. Skin intact; patient ambulatory. IV LAC fluid running at 75 cc. Side rails up x2, breaks engaged, bed at lowest position. Call light within reach. Will keep monitoring.
--- NOTE | 2018-07-31 07:22 | NUR ---
HAND-OFF: Report given to ALFONSO Hansen.
[2018-07-31 08:00] VITALS: BP 136/65
[2018-07-31 09:32] LABS: HEMATOCRIT 36.6 % (37.0-47.0); HEMOGLOBIN 12.4 G/DL (12.0-16.0); MEAN CORPUSCULAR VOLUME 88 FL (80-99); PLATELET COUNT 168 K/UL (150-450); RED BLOOD COUNT 4.18 M/UL (4.20-5.40); RED CELL DISTRIBUTION WIDTH 12.4 % (11.6-14.8); WHITE BLOOD COUNT 5.5 K/UL (4.8-10.8)
[2018-07-31] MEDS: Pantoprazole Inj IVP SCH (09:36)
[2018-07-31] MEDS: Atenolol 25mg tab ORAL SCH ×2 (09:36→20:42)
[2018-07-31 09:39] LABS: ANION GAP 8 mmol/L (5-15); BLOOD UREA NITROGEN 8 mg/dL (7-18); CALCIUM 8.9 MG/DL (8.5-10.1); CARBON DIOXIDE 28 MMOL/L (21-32); CHLORIDE 106 MMOL/L (98-107); CREATININE 1.2 MG/DL (0.55-1.30); POTASSIUM 3.8 MMOL/L (3.5-5.1); SODIUM 142 MMOL/L (136-145)
[2018-07-31] MEDS: Heparin 5000 units/ml inj SUBQ SCH ×2 (09:45→20:43)
[2018-07-31 12:00] VITALS: BP 132/68
[2018-07-31] MEDS: Norco 5mg/325mg tab ORAL PRN (12:54)
--- NOTE | 2018-07-31 14:07 | Internal Med Progress Note ---
Subjective Date of Service: Jul 31, 2018 Physician Name Salvador Rachel Attending Physician Maurice Good MD Current Medications Medications (Trade) Dose Ordered Sig/Dominga Route PRN Reason Start Time Stop Time Status Last Admin Dose Admin Acetaminophen (Tylenol) 650 mg Q6H PRN ORAL Mild Pain/Temp > 100.5 07/28/18 18:15 08/27/18 18:14 Acetaminophen/ Hydrocodone Bitart ([place] 5/325) 1 tab Q6H PRN ORAL Mod-severe Pain (Pain 4-10) 07/28/18 18:15 08/04/18 18:14 07/31/18 12:54 Amlodipine Besylate (Norvasc) 2.5 mg DAILY ORAL 07/29/18 09:00 08/28/18 08:59 07/31/18 09:35 Atenolol (Tenormin) 25 mg Q12HR ORAL 07/30/18 21:00 08/29/18 20:59 07/31/18 09:36 Dextrose/Sodium Chloride 1,000 ml @ 75 mls/hr [id number] IV 07/28/18 19:45 08/27/18 19:44 07/31/18 12:54 Heparin Sodium (Porcine) (Heparin 5000 units/ml) 5,000 units EVERY 12 HOURS SUBQ 07/28/18 21:00 08/27/18 20:59 07/31/18 09:45 Morphine Sulfate (Morphine Sulfate) 2 mg Q4H PRN IVP Severe Pain (Pain Scale 7-10) 07/28/18 21:00 08/04/18 20:59 07/29/18 10:07 Ondansetron HCl (Zofran) 4 mg EVERY 4 HOURS PRN IVP Nausea & Vomiting 07/28/18 18:15 08/27/18 18:14 07/28/18 20:28 Pantoprazole (Protonix) 40 mg DAILY IVP 07/29/18 18:47 08/28/18 18:46 07/31/18 09:36 Allergies: Coded Allergies: No Known Allergies (Unverified , 07/28/18) ROS Limited/Unobtainable: No Constitutional: Reports: no symptoms HEENT: Reports: no symptoms Cardiovascular: Reports: no symptoms Respiratory: Reports: no symptoms Gastrointestinal/Abdominal: Reports: no symptoms Genitourinary: Reports: no symptoms Neurologic/Psychiatric: Reports: no symptoms Subjective 73 YO F admitted with abdominal pain, nausea and diarrhea. Cover for Int Anthony- DR Good. Tolerating regular diet Objective Last Vital Signs Date Time Temp Pulse Resp B/P (MAP) Pulse Ox O2 Delivery O2 Flow Rate FiO2 07/31/18 13:24 98.0 07/31/18 12:00 53 18 132/68 (89) 98 07/31/18 09:00 Room Air Laboratory Tests Test 07/31/18 08:45 White Blood Count 5.5 K/UL (4.8-10.8) Red Blood Count 4.18 M/UL (4.20-5.40) L Hemoglobin 12.4 G/DL (12.0-16.0) Hematocrit 36.6 % (37.0-47.0) L Mean Corpuscular Volume 88 FL (80-99) Mean Corpuscular Hemoglobin 29.6 PG (27.0-31.0) Mean Corpuscular Hemoglobin Concent 33.7 G/DL (32.0-36.0) Red Cell Distribution Width 12.4 % (11.6-14.8) Platelet Count 168 K/UL (150-450) Mean Platelet Volume 7.1 FL (6.5-10.1) Neutrophils (%) (Auto) % (45.0-75.0) Lymphocytes (%) (Auto) % (20.0-45.0) Monocytes (%) (Auto) % (1.0-10.0) Eosinophils (%) (Auto) % (0.0-3.0) Basophils (%) (Auto) % (0.0-2.0) Differential Total Cells Counted 100 Neutrophils % (Manual) 28 % (45-75) L Lymphocytes % (Manual) 59 % (20-45) H Monocytes % (Manual) 9 % (1-10) Eosinophils % (Manual) 4 % (0-3) H Basophils % (Manual) 0 % (0-2) Band Neutrophils 0 % (0-8) Platelet Estimate Adequate Platelet Morphology Normal Red Blood Cell Morphology Normal Sodium Level 142 MMOL/L (136-145) Potassium Level 3.8 MMOL/L (3.5-5.1) Chloride Level 106 MMOL/L (98-107) Carbon Dioxide Level 28 MMOL/L (21-32) Anion Gap 8 mmol/L (5-15) Blood Urea Nitrogen 8 mg/dL (7-18) Creatinine 1.2 MG/DL (0.55-1.30) Estimat Glomerular Filtration Rate mL/min (>60) Glucose Level 85 MG/DL (74-106) Calcium Level 8.9 MG/DL (8.5-10.1) Intake and Output 07/30/18 07/31/18 18:59 06:59 Intake Total 1185 ml 1225 ml Balance 1185 ml 1225 ml Intake Oral 360 ml 250 ml IV Total 825 ml 975 ml # Voids 4 Objective PHYSICAL EXAMINATION: GENERAL: The patient is a well-developed and well-nourished female, in no apparent distress. HEENT: Eyes, pupils are equal and responsive to light and accommodation. Extraocular movements are intact. NECK: Supple. No lymphadenopathy. CHEST: Lungs are clear to auscultation bilaterally without wheezes or rales. CARDIOVASCULAR: Regular rhythm and rate. S1-S2 are normal without murmurs, rubs, or gallops. ABDOMEN: Soft, nondistended with decreased bowel sounds. There is tenderness to palpation to right lower quadrant. No evidence of rebound or guarding noted. EXTREMITIES: Negative for clubbing, cyanosis, or edema. RECTAL/GENITAL: Refused. NEUROLOGIC: Cranial nerves II through XII are grossly intact without focal deficits. Motor strength is 5/5 bilaterally. Deep tendon reflexes are 2+ plantar. Assessment/Plan Assessment/Plan ASSESSMENT: This is a 73-year-old female with: 1. Abdominal pain. 2. Nausea and vomiting. 3. Diarrhea. 4. Right lower quadrant pain. 5. Hypertension. TREATMENT: 1. Abdominal pain/nausea/vomiting/diarrhea. A Gastroenterology consultation has been obtained with Dr. Zuleta. The patient is currently receiving intravenous Zofran for nausea and vomiting. Stool cultures are pending. We will follow recommendations of Gastroenterology. 2. Right lower quadrant pain. The patient's white count is within normal limits. Appendicitis has been ruled out with white count. A CT scan of the abdomen showed diverticulosis without diverticulitis 3. Hypertension. Continue amlodipine and atenolol as above. 4. Tolerating regular diet 5. Discharge planning Salvador Rachel MD Jul 31, 2018 14:07
[2018-07-31 16:00] VITALS: BP 149/74
--- NOTE | 2018-07-31 19:15 | General Progress Note ---
Assessment/Plan Assessment/Plan Assessment - N/V/D - ? gastroenteritis, resolving - still with an episode of vomiting this am - RA - SIBO - HTN - Obesity - mild diverticulosis - Fibromyalgia - chronic constipation - h/o anemia - smoking history Recommendations - Endoscopy in am - check stool studies - still pending - PPI - anti- emetics - IV hydration Subjective Allergies: Coded Allergies: No Known Allergies (Unverified , 07/28/18) Subjective had another episode of vomiting this am says it was small volume - did not tell RN no further diarrhea no pain on solids Objective Last 24 Hour Vital Signs Date Time Temp Pulse Resp B/P (MAP) Pulse Ox O2 Delivery O2 Flow Rate FiO2 07/31/18 17:01 98.0 07/31/18 16:00 98.1 52 18 149/74 (99) 98 07/31/18 13:24 98.0 07/31/18 12:00 98.7 53 18 132/68 (89) 98 07/31/18 09:36 56 136/65 07/31/18 09:35 56 136/65 07/31/18 09:00 Room Air 07/31/18 08:00 98.0 56 18 136/65 (88) 100 07/31/18 04:00 98.0 79 18 139/69 (92) 98 07/31/18 00:00 97.3 52 18 148/69 (95) 97 07/30/18 21:21 56 154/70 07/30/18 21:00 Room Air 07/30/18 20:00 97.6 56 18 154/70 (98) 98 Intake and Output 07/30/18 07/31/18 19:00 07:00 Intake Total 1260 ml 1150 ml Balance 1260 ml 1150 ml Intake Oral 360 ml 250 ml IV Total 900 ml 900 ml # Voids 4 Laboratory Tests 07/31/18 08:45: White Blood Count 5.5, Red Blood Count 4.18L, Hemoglobin 12.4, Hematocrit 36.6L , Mean Corpuscular Volume 88, Mean Corpuscular Hemoglobin 29.6, Mean Corpuscular Hemoglobin Concent 33.7, Red Cell Distribution Width 12.4, Platelet Count 168, Mean Platelet Volume 7.1, Neutrophils (%) (Auto) , Lymphocytes (%) ( Auto) , Monocytes (%) (Auto) , Eosinophils (%) (Auto) , Basophils (%) (Auto) , Differential Total Cells Counted 100, Neutrophils % (Manual) 28L, Lymphocytes % (Manual) 59H, Monocytes % (Manual) 9, Eosinophils % (Manual) 4H, Basophils % ( Manual) 0, Band Neutrophils 0, Platelet Estimate Adequate, Platelet Morphology Normal, Red Blood Cell Morphology Normal, Sodium Level 142, Potassium Level 3.8 , Chloride Level 106, Carbon Dioxide Level 28, Anion Gap 8, Blood Urea Nitrogen 8, Creatinine 1.2, Estimat Glomerular Filtration Rate , Glucose Level 85, Calcium Level 8.9 Height (Feet): 5 Height (Inches): 4.00 Weight (Pounds): 190 Jesus Zuleta MD Jul 31, 2018 19:15
--- NOTE | 2018-07-31 19:43 | NUR ---
HAND-OFF: Report given to ALFONSO Cedeño.
[2018-07-31 19:48] VITALS: BP 132/65
--- NOTE | 2018-07-31 19:59 | NUR ---
NURSE NOTES: Received patient awake,alert,verbal,resting in bed,signed the consent for the procedure,Npo post midnight advised.
[2018-08-01] VITALS (10 sets, daily range): BP systolic 100–160; BP diastolic 61–80
[2018-08-01] MEDS: D5 1/2NS 1,000 ML IV SCH ×2 (02:00→16:36)
[2018-08-01 06:40] LABS: BASOPHILS % (AUTO) 0.7 % (0.0-2.0); HEMATOCRIT 35.5 % (37.0-47.0); LYMPHOCYTES % (AUTO) 49.7 % (20.0-45.0); MEAN CORPUSCULAR VOLUME 88 FL (80-99); MONOCYTES % (AUTO) 10.7 % (1.0-10.0); PLATELET COUNT 166 K/UL (150-450); RED BLOOD COUNT 4.05 M/UL (4.20-5.40); RED CELL DISTRIBUTION WIDTH 12.5 % (11.6-14.8); WHITE BLOOD COUNT 6.1 K/UL (4.8-10.8)
[2018-08-01 06:54] LABS: ANION GAP 6 mmol/L (5-15); BLOOD UREA NITROGEN 13 mg/dL (7-18); CARBON DIOXIDE 29 MMOL/L (21-32); CHLORIDE 105 MMOL/L (98-107); CREATININE 1.2 MG/DL (0.55-1.30); POTASSIUM 3.9 MMOL/L (3.5-5.1); SODIUM 140 MMOL/L (136-145)
--- NOTE | 2018-08-01 07:36 | NUR ---
HAND-OFF: Report given to ALFONSO Glasgow.
--- NOTE | 2018-08-01 07:36 | NUR ---
NURSE NOTES: Patient alert x4; in room air, no sign of distress and shortness of breath; skin intact; IV in place and fluid runs well; patient NPO for Endoscopy with possible Biopsy, polypectomy, hemostatis and dilation, patient signed the consent on PM shift; side rails up x2, bed at lowest position, breaks engaged. Call light within reach, will keep monitoring.
[2018-08-01] MEDS ORDERED: fentaNYL 100 mcg/2 mL IV PRN (07:45)
--- NOTE | 2018-08-01 07:48 | Anethesia Preoperative Eval ---
Anesthesia Pre-op PMH/ROS General Date of Evaluation: Aug 01, 2018 Time of Evaluation: 07:43 Anesthesiologist: luis alberto ASA Score: ASA 3 Mallampati Score Class I : Soft palate, uvula, fauces, pillars visible Class II: Soft palate, uvula, fauces visible Class III: Soft palate, base of uvula visible Class IV: Only hard plate visible Mallampati Classification: Class II Surgeon: lelia Diagnosis: abdominal pain Surgical Procedure: egd Anesthesia History: none Social History: smoking - former smoker Family History: no anesthesia problems Allergies: Coded Allergies: No Known Allergies (Unverified , 07/28/18) Medications: see eMAR Patient NPO?: Yes Past Medical History Cardiovascular: Reports: HTN, arrhythmia - bradycardia, other - angina, hypercholesterolemia Gastrointestinal/Genitourinary: Reports: other - diverticulitis Neurologic/Psychiatric: Reports: other - periphaeral neuropathy HEENT: Reports: cataract (L), cataract (R) Musculoskeletal/Integumentary: Reports: RA, other - tka, spinal fusion, Anesthesia Pre-op Phys. Exam Physician Exam Last Vital Signs Date Time Temp Pulse Resp B/P (MAP) Pulse Ox O2 Delivery O2 Flow Rate FiO2 08/01/18 04:00 97.7 55 18 146/77 (100) 98 07/31/18 20:15 Room Air Constitutional: NAD Neurologic: CN 2-12 intact Cardiovascular: RRR Respiratory: CTA Gastrointestinal: S/NT/ND Airway Exam Mallampati Score: Class II MO: limited Neck: flexible TMD: 2fb ROM: limited Anesthesia Pre-op A/P Labs Hematology Test 07/31/18 08:45 08/01/18 06:00 White Blood Count 5.5 K/UL (4.8-10.8) 6.1 K/UL (4.8-10.8) Red Blood Count 4.18 M/UL (4.20-5.40) L 4.05 M/UL (4.20-5.40) L Hemoglobin 12.4 G/DL (12.0-16.0) 12.0 G/DL (12.0-16.0) Hematocrit 36.6 % (37.0-47.0) L 35.5 % (37.0-47.0) L Mean Corpuscular Volume 88 FL (80-99) 88 FL (80-99) Mean Corpuscular Hemoglobin 29.6 PG (27.0-31.0) 29.5 PG (27.0-31.0) Mean Corpuscular Hemoglobin Concent 33.7 G/DL (32.0-36.0) 33.7 G/DL (32.0-36.0) Red Cell Distribution Width 12.4 % (11.6-14.8) 12.5 % (11.6-14.8) Platelet Count 168 K/UL (150-450) 166 K/UL (150-450) Mean Platelet Volume 7.1 FL (6.5-10.1) 7.0 FL (6.5-10.1) Neutrophils (%) (Auto) % (45.0-75.0) 35.0 % (45.0-75.0) L Lymphocytes (%) (Auto) % (20.0-45.0) 49.7 % (20.0-45.0) H Monocytes (%) (Auto) % (1.0-10.0) 10.7 % (1.0-10.0) H Eosinophils (%) (Auto) % (0.0-3.0) 4.0 % (0.0-3.0) H Basophils (%) (Auto) % (0.0-2.0) 0.7 % (0.0-2.0) Differential Total Cells Counted 100 Neutrophils % (Manual) 28 % (45-75) L Lymphocytes % (Manual) 59 % (20-45) H Monocytes % (Manual) 9 % (1-10) Eosinophils % (Manual) 4 % (0-3) H Basophils % (Manual) 0 % (0-2) Band Neutrophils 0 % (0-8) Platelet Estimate Adequate Platelet Morphology Normal Red Blood Cell Morphology Normal Chemistry Test 07/31/18 08:45 08/01/18 06:00 Sodium Level 142 MMOL/L (136-145) 140 MMOL/L (136-145) Potassium Level 3.8 MMOL/L (3.5-5.1) 3.9 MMOL/L (3.5-5.1) Chloride Level 106 MMOL/L (98-107) 105 MMOL/L (98-107) Carbon Dioxide Level 28 MMOL/L (21-32) 29 MMOL/L (21-32) Anion Gap 8 mmol/L (5-15) 6 mmol/L (5-15) Blood Urea Nitrogen 8 mg/dL (7-18) 13 mg/dL (7-18) Creatinine 1.2 MG/DL (0.55-1.30) 1.2 MG/DL (0.55-1.30) Estimat Glomerular Filtration Rate mL/min (>60) mL/min (>60) Glucose Level 85 MG/DL (74-106) 88 MG/DL (74-106) Calcium Level 8.9 MG/DL (8.5-10.1) 9.0 MG/DL (8.5-10.1) Risk Assessment & Plan Assessment: asa3 Plan: mac Status Change Before Surgery: No Pre-Antibiotics Drug: Sandy Gooden MD Aug 01, 2018 07:48
[2018-08-01] MEDS ORDERED: Midazolam 2mg/2ml Inj IVP PRN (07:54)
[2018-08-01] MEDS ORDERED: DiphenhydrAMINE 50mg/ml Inj IVP PRN (07:56)
[2018-08-01] MEDS ORDERED: Atropine Inj 1mg/10ml Syr IV PRN (07:56)
[2018-08-01] MEDS ORDERED: Propofol 200mg/20ml IV ONE (08:00)
[2018-08-01] MEDS ORDERED: Lidocaine 1% MPF 10mg/ml 5ml ONE (08:00)
[2018-08-01] MEDS: Atenolol 25mg tab ORAL SCH ×2 (08:14→21:00)
[2018-08-01] MEDS: Pantoprazole Inj IVP SCH (08:20)
[2018-08-01] MEDS: Heparin 5000 units/ml inj SUBQ SCH ×2 (08:20→21:07)
--- NOTE | 2018-08-01 08:25 | NUR ---
NURSE NOTES: Patient left the floor for Endoscopic procedure.
[2018-08-01] MEDS ORDERED: NS 500ML IVPB ONE (08:30)
--- NOTE | 2018-08-01 08:39 | Pre-Procedure Note/Attestation ---
Pre-Procedure Note/Attestation Complete Prior to Procedure Planned Procedure: not applicable Procedure Narrative: EGD Indications for Procedure Pre-Operative Diagnosis: vomiting Attestation I attest that I discussed the nature of the procedure; its benefits; risks and complications; and alternatives (and the risks and benefits of such alternatives ), prior to the procedure, with the patient (or the patient's legal compliance representative dealer). I attest that, if there was a reasonable possibility of needing a blood transfusion, the patient (or the patient's legal compliance representative dealer) was given the [facility] standardized written summary, pursuant to the Bogdan Yeni Blood Safety Act ([place] Health and Safety Code # 1645, as amended). I attest that I re-evaluated the patient just prior to the surgery and that there has been no change in the patient's H&P, except as documented below: Jesus Zuleta MD Aug 01, 2018 08:39
--- NOTE | 2018-08-01 08:39 | General Progress Note ---
Assessment/Plan Assessment/Plan Assessment - Diarrhea - ? gastroenteritis, resolving - still with vomiting - RA - SIBO - HTN - Obesity - mild diverticulosis - Fibromyalgia - chronic constipation - h/o anemia - smoking history Recommendations - Endoscopy today - check stool studies - still pending - PPI - anti- emetics - IV hydration Subjective Allergies: Coded Allergies: No Known Allergies (Unverified , 07/28/18) Subjective NPO for EGD no further diarrhea vomited yesterday no pain Objective Last 24 Hour Vital Signs Date Time Temp Pulse Resp B/P (MAP) Pulse Ox O2 Delivery O2 Flow Rate FiO2 08/01/18 08:15 50 160/68 08/01/18 08:14 50 160/68 08/01/18 08:00 97.2 50 18 160/68 (98) 97 08/01/18 04:00 97.7 55 18 146/77 (100) 98 07/31/18 20:42 54 132/65 07/31/18 20:15 Room Air 07/31/18 19:48 97.8 54 18 132/65 (87) 96 07/31/18 17:01 98.0 07/31/18 16:00 98.1 52 18 149/74 (99) 98 07/31/18 13:24 98.0 07/31/18 12:00 98.7 53 18 132/68 (89) 98 07/31/18 09:36 56 136/65 07/31/18 09:35 56 136/65 07/31/18 09:00 Room Air Intake and Output 07/31/18 08/01/18 19:00 07:00 Intake Total 1650 ml 1120 ml Balance 1650 ml 1120 ml Intake Oral 220 ml IV Total 900 ml 900 ml Other 750 ml # Voids 4 3 Laboratory Tests 07/31/18 08:45: White Blood Count 5.5, Red Blood Count 4.18L, Hemoglobin 12.4, Hematocrit 36.6L , Mean Corpuscular Volume 88, Mean Corpuscular Hemoglobin 29.6, Mean Corpuscular Hemoglobin Concent 33.7, Red Cell Distribution Width 12.4, Platelet Count 168, Mean Platelet Volume 7.1, Neutrophils (%) (Auto) , Lymphocytes (%) ( Auto) , Monocytes (%) (Auto) , Eosinophils (%) (Auto) , Basophils (%) (Auto) , Differential Total Cells Counted 100, Neutrophils % (Manual) 28L, Lymphocytes % (Manual) 59H, Monocytes % (Manual) 9, Eosinophils % (Manual) 4H, Basophils % ( Manual) 0, Band Neutrophils 0, Platelet Estimate Adequate, Platelet Morphology Normal, Red Blood Cell Morphology Normal, Sodium Level 142, Potassium Level 3.8 , Chloride Level 106, Carbon Dioxide Level 28, Anion Gap 8, Blood Urea Nitrogen 8, Creatinine 1.2, Estimat Glomerular Filtration Rate , Glucose Level 85, Calcium Level 8.9 08/01/18 06:00: White Blood Count 6.1, Red Blood Count 4.05L, Hemoglobin 12.0, Hematocrit 35.5L , Mean Corpuscular Volume 88, Mean Corpuscular Hemoglobin 29.5, Mean Corpuscular Hemoglobin Concent 33.7, Red Cell Distribution Width 12.5, Platelet Count 166, Mean Platelet Volume 7.0, Neutrophils (%) (Auto) 35.0L, Lymphocytes ( %) (Auto) 49.7H, Monocytes (%) (Auto) 10.7H, Eosinophils (%) (Auto) 4.0H, Basophils (%) (Auto) 0.7, Sodium Level 140, Potassium Level 3.9, Chloride Level 105, Carbon Dioxide Level 29, Anion Gap 6, Blood Urea Nitrogen 13, Creatinine 1.2, Estimat Glomerular Filtration Rate , Glucose Level 88, Calcium Level 9.0 Height (Feet): 5 Height (Inches): 5.00 Weight (Pounds): 190 Jesus Zuleta MD Aug 01, 2018 08:39
--- NOTE | 2018-08-01 09:17 | Immediate Post-Op Evaluation ---
Immediate Post-Op Evalulation Immediate Post-Op Evalulation Procedure: egd/bx Date of Evaluation: Aug 01, 2018 Time of Evaluation: 09:15 IV Fluids: 100ml 0.9ns Blood Products: none Estimated Blood Loss: negligible Blood Pressure Systolic: 123 Blood Pressure Diastolic: 62 Pulse Rate: 55 Respiratory Rate: 18 O2 Sat by Pulse Oximetry: 99 Temperature (Fahrenheit): 97.3 Pain Score (1-10): 0 Nausea: No Vomiting: No Complications none Patient Status: awake, reacts, patent Hydration Status: adequate Drug: Sandy Gooden MD Aug 01, 2018 09:17
--- NOTE | 2018-08-01 09:19 | 48 Hour Post Anesthesia Eval ---
Post Anesthesia Evaluation Procedure: egd/bx Date of Evaluation: Aug 01, 2018 Time of Evaluation: 09:17 Blood Pressure Systolic: 130 0: 62 Pulse Rate: 56 Respiratory Rate: 18 Temperature (Fahrenheit): 97.3 O2 Sat by Pulse Oximetry: 99 Airway: patent Nausea: No Vomiting: No Pain Intensity: 0 Hydration Status: adequate Cardiopulmonary Status: stable Mental Status/LOC: patient returned to baseline Post-Anesthesia Complications: none Follow-up care needed: N/A Sandy Sinclair MD Aug 01, 2018 09:19
--- NOTE | 2018-08-01 17:53 | Internal Med Progress Note ---
Subjective Date of Service: Aug 01, 2018 Physician Name Salvador Rachel Attending Physician Maurice Good MD Current Medications Medications (Trade) Dose Ordered Sig/Dominga Route PRN Reason Start Time Stop Time Status Last Admin Dose Admin Acetaminophen (Tylenol) 650 mg Q6H PRN ORAL Mild Pain/Temp > 100.5 07/28/18 18:15 08/27/18 18:14 08/01/18 15:34 Acetaminophen/ Hydrocodone Bitart ([place] 5/325) 1 tab Q6H PRN ORAL Mod-severe Pain (Pain 4-10) 07/28/18 18:15 08/04/18 18:14 07/31/18 12:54 Amlodipine Besylate (Norvasc) 2.5 mg DAILY ORAL 07/29/18 09:00 08/28/18 08:59 08/01/18 08:15 Atenolol (Tenormin) 25 mg Q12HR ORAL 07/30/18 21:00 08/29/18 20:59 08/01/18 08:14 Dextrose/Sodium Chloride 1,000 ml @ 75 mls/hr [id number] IV 07/28/18 19:45 08/27/18 19:44 08/01/18 16:36 Heparin Sodium (Porcine) (Heparin 5000 units/ml) 5,000 units EVERY 12 HOURS SUBQ 07/28/18 21:00 08/27/18 20:59 07/31/18 09:45 Morphine Sulfate (Morphine Sulfate) 2 mg Q4H PRN IVP Severe Pain (Pain Scale 7-10) 07/28/18 21:00 08/04/18 20:59 07/29/18 10:07 Ondansetron HCl (Zofran) 4 mg EVERY 4 HOURS PRN IVP Nausea & Vomiting 07/28/18 18:15 08/27/18 18:14 07/28/18 20:28 Pantoprazole (Protonix) 40 mg DAILY IVP 07/29/18 18:47 08/28/18 18:46 07/31/18 09:36 Allergies: Coded Allergies: No Known Allergies (Unverified , 07/28/18) ROS Limited/Unobtainable: No Constitutional: Reports: no symptoms HEENT: Reports: no symptoms Cardiovascular: Reports: no symptoms Respiratory: Reports: no symptoms Gastrointestinal/Abdominal: Reports: abdominal pain Genitourinary: Reports: no symptoms Neurologic/Psychiatric: Reports: no symptoms Subjective 73 YO F admitted with abdominal pain, nausea and diarrhea. Cover for Int Anthony- DR Good. Tolerating regular diet. Await endoscopy 08/02/18 Objective Last Vital Signs Date Time Temp Pulse Resp B/P (MAP) Pulse Ox O2 Delivery O2 Flow Rate FiO2 08/01/18 16:04 97.3 08/01/18 16:00 52 18 147/76 (99) 97 08/01/18 09:33 Room Air 08/01/18 09:13 3 Laboratory Tests Test 08/01/18 06:00 White Blood Count 6.1 K/UL (4.8-10.8) Red Blood Count 4.05 M/UL (4.20-5.40) L Hemoglobin 12.0 G/DL (12.0-16.0) Hematocrit 35.5 % (37.0-47.0) L Mean Corpuscular Volume 88 FL (80-99) Mean Corpuscular Hemoglobin 29.5 PG (27.0-31.0) Mean Corpuscular Hemoglobin Concent 33.7 G/DL (32.0-36.0) Red Cell Distribution Width 12.5 % (11.6-14.8) Platelet Count 166 K/UL (150-450) Mean Platelet Volume 7.0 FL (6.5-10.1) Neutrophils (%) (Auto) 35.0 % (45.0-75.0) L Lymphocytes (%) (Auto) 49.7 % (20.0-45.0) H Monocytes (%) (Auto) 10.7 % (1.0-10.0) H Eosinophils (%) (Auto) 4.0 % (0.0-3.0) H Basophils (%) (Auto) 0.7 % (0.0-2.0) Sodium Level 140 MMOL/L (136-145) Potassium Level 3.9 MMOL/L (3.5-5.1) Chloride Level 105 MMOL/L (98-107) Carbon Dioxide Level 29 MMOL/L (21-32) Anion Gap 6 mmol/L (5-15) Blood Urea Nitrogen 13 mg/dL (7-18) Creatinine 1.2 MG/DL (0.55-1.30) Estimat Glomerular Filtration Rate mL/min (>60) Glucose Level 88 MG/DL (74-106) Calcium Level 9.0 MG/DL (8.5-10.1) Intake and Output 07/31/18 08/01/18 18:59 06:59 Intake Total 1650 ml 1045 ml Balance 1650 ml 1045 ml Intake Oral 220 ml IV Total 900 ml 825 ml Other 750 ml # Voids 4 3 Objective PHYSICAL EXAMINATION: GENERAL: The patient is a well-developed and well-nourished female, in no apparent distress. HEENT: Eyes, pupils are equal and responsive to light and accommodation. Extraocular movements are intact. NECK: Supple. No lymphadenopathy. CHEST: Lungs are clear to auscultation bilaterally without wheezes or rales. CARDIOVASCULAR: Regular rhythm and rate. S1-S2 are normal without murmurs, rubs, or gallops. ABDOMEN: Soft, nondistended with decreased bowel sounds. There is tenderness to palpation to right lower quadrant. No evidence of rebound or guarding noted. EXTREMITIES: Negative for clubbing, cyanosis, or edema. RECTAL/GENITAL: Refused. NEUROLOGIC: Cranial nerves II through XII are grossly intact without focal deficits. Motor strength is 5/5 bilaterally. Deep tendon reflexes are 2+ plantar. Assessment/Plan Assessment/Plan ASSESSMENT: This is a 73-year-old female with: 1. Abdominal pain. 2. Nausea and vomiting. 3. Diarrhea. 4. Right lower quadrant pain. 5. Hypertension. TREATMENT: 1. Abdominal pain/nausea/vomiting/diarrhea. A Gastroenterology consultation has been obtained with Dr. Zuleta. The patient is currently receiving intravenous Zofran for nausea and vomiting. Stool cultures are pending. We will follow recommendations of Gastroenterology. 2. Right lower quadrant pain. The patient's white count is within normal limits. Appendicitis has been ruled out with white count. A CT scan of the abdomen showed diverticulosis without diverticulitis 3. Hypertension. Continue amlodipine and atenolol as above. 4. Tolerating regular diet 5. Endoscopy scheduled 08/02/18 6. Discharge planning Salvador Rachel MD Aug 01, 2018 17:53
--- NOTE | 2018-08-01 19:40 | NUR ---
HAND-OFF: Report given to ALFONSO Cedeño.
--- NOTE | 2018-08-01 19:41 | NUR ---
NURSE NOTES: Received patient awake,alert,verbal,resting in bed comfortably without complaints.
--- NOTE | 2018-08-01 19:45 | Pulmonology Progress Note ---
Assessment/Plan Problems: (1) History of hypertension (2) Dehydration, moderate (3) Abdominal pain Assessment/Plan symptomatic treatment f/u GI recommendations dc IV fluids dvt prophylaxis dc planning Subjective ROS Limited/Unobtainable: No Interval Events: doing better, no new complains Allergies: Coded Allergies: No Known Allergies (Unverified , 07/28/18) Objective Last 24 Hour Vital Signs Date Time Temp Pulse Resp B/P (MAP) Pulse Ox O2 Delivery O2 Flow Rate FiO2 08/01/18 18:37 Room Air 08/01/18 16:04 97.3 08/01/18 16:00 98.1 52 18 147/76 (99) 97 08/01/18 12:00 97.3 58 18 138/64 (88) 98 08/01/18 09:33 97.8 53 14 147/71 99 Room Air 08/01/18 09:25 50 18 146/61 99 Room Air 08/01/18 09:19 56 18 99 08/01/18 09:17 55 18 99 08/01/18 09:13 51 15 100/79 99 Nasal Cannula 3 08/01/18 09:08 48 13 131/70 99 Nasal Cannula 3 08/01/18 09:03 97.3 55 16 123/62 99 Nasal Cannula 3 08/01/18 09:00 Room Air 08/01/18 08:15 50 160/68 08/01/18 08:14 50 160/68 08/01/18 08:00 97.2 50 18 160/68 (98) 97 08/01/18 04:00 97.7 55 18 146/77 (100) 98 07/31/18 20:42 54 132/65 07/31/18 20:15 Room Air 07/31/18 19:48 97.8 54 18 132/65 (87) 96 Intake and Output 07/31/18 08/01/18 19:00 07:00 Intake Total 1650 ml 1120 ml Balance 1650 ml 1120 ml Intake Oral 220 ml IV Total 900 ml 900 ml Other 750 ml # Voids 4 3 General Appearance: WD/WN HEENT: normocephalic, atraumatic, anicteric Respiratory/Chest: chest wall non-tender, lungs clear, normal breath sounds Breasts: no masses Cardiovascular: normal peripheral pulses, normal rate Abdomen: normal bowel sounds, soft, non tender Genitourinary: normal external genitalia Extremities: no clubbing Skin: no lesions 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 Lymphatic: no neck adenopathy Laboratory Tests 08/01/18 06:00: White Blood Count 6.1, Red Blood Count 4.05L, Hemoglobin 12.0, Hematocrit 35.5L , Mean Corpuscular Volume 88, Mean Corpuscular Hemoglobin 29.5, Mean Corpuscular Hemoglobin Concent 33.7, Red Cell Distribution Width 12.5, Platelet Count 166, Mean Platelet Volume 7.0, Neutrophils (%) (Auto) 35.0L, Lymphocytes ( %) (Auto) 49.7H, Monocytes (%) (Auto) 10.7H, Eosinophils (%) (Auto) 4.0H, Basophils (%) (Auto) 0.7, Sodium Level 140, Potassium Level 3.9, Chloride Level 105, Carbon Dioxide Level 29, Anion Gap 6, Blood Urea Nitrogen 13, Creatinine 1.2, Estimat Glomerular Filtration Rate , Glucose Level 88, Calcium Level 9.0 Current Medications Medications (Trade) Dose Ordered Sig/Dominga Route PRN Reason Start Time Stop Time Status Last Admin Dose Admin Acetaminophen (Tylenol) 650 mg Q6H PRN ORAL Mild Pain/Temp > 100.5 07/28/18 18:15 08/27/18 18:14 08/01/18 15:34 Acetaminophen/ Hydrocodone Bitart ([place] 5/325) 1 tab Q6H PRN ORAL Mod-severe Pain (Pain 4-10) 07/28/18 18:15 08/04/18 18:14 07/31/18 12:54 Amlodipine Besylate (Norvasc) 2.5 mg DAILY ORAL 07/29/18 09:00 08/28/18 08:59 08/01/18 08:15 Atenolol (Tenormin) 25 mg Q12HR ORAL 07/30/18 21:00 08/29/18 20:59 08/01/18 08:14 Dextrose/Sodium Chloride 1,000 ml @ 75 mls/hr [id number] IV 07/28/18 19:45 08/27/18 19:44 08/01/18 16:36 Heparin Sodium (Porcine) (Heparin 5000 units/ml) 5,000 units EVERY 12 HOURS SUBQ 07/28/18 21:00 08/27/18 20:59 07/31/18 09:45 Morphine Sulfate (Morphine Sulfate) 2 mg Q4H PRN IVP Severe Pain (Pain Scale 7-10) 07/28/18 21:00 08/04/18 20:59 07/29/18 10:07 Ondansetron HCl (Zofran) 4 mg EVERY 4 HOURS PRN IVP Nausea & Vomiting 07/28/18 18:15 08/27/18 18:14 07/28/18 20:28 Pantoprazole (Protonix) 40 mg DAILY IVP 07/29/18 18:47 08/28/18 18:46 07/31/18 09:36 Asmita Thomas MD Aug 01, 2018 19:45
[2018-08-02] VITALS (7 sets, daily range): BP systolic 128–153; BP diastolic 58–73
[2018-08-02 06:36] LABS: BASOPHILS % (AUTO) 0.6 % (0.0-2.0); HEMATOCRIT 35.3 % (37.0-47.0); HEMOGLOBIN 12.1 G/DL (12.0-16.0); LYMPHOCYTES % (AUTO) 41.5 % (20.0-45.0); MEAN CORPUSCULAR VOLUME 87 FL (80-99); MONOCYTES % (AUTO) 8.8 % (1.0-10.0); NEUTROPHILS % (AUTO) 46.1 % (45.0-75.0); PLATELET COUNT 171 K/UL (150-450); RED BLOOD COUNT 4.06 M/UL (4.20-5.40); RED CELL DISTRIBUTION WIDTH 12.6 % (11.6-14.8); WHITE BLOOD COUNT 7.9 K/UL (4.8-10.8)
[2018-08-02 06:59] LABS: ALANINE AMINOTRANSFERASE 23 U/L (12-78); ALBUMIN 3.1 G/DL (3.4-5.0); ALBUMIN/GLOBULIN RATIO 0.9 (1.0-2.7); ALKALINE PHOSPHATASE 88 U/L (46-116); ANION GAP 5 mmol/L (5-15); ASPARTATE AMINO TRANSFERASE 27 U/L (15-37); BILIRUBIN,TOTAL 0.6 MG/DL (0.2-1.0); BLOOD UREA NITROGEN 15 mg/dL (7-18); CALCIUM 9.1 MG/DL (8.5-10.1); CARBON DIOXIDE 29 MMOL/L (21-32); CHLORIDE 107 MMOL/L (98-107); CREATININE 1.2 MG/DL (0.55-1.30); POTASSIUM 4.4 MMOL/L (3.5-5.1); SODIUM 141 MMOL/L (136-145)
--- NOTE | 2018-08-02 07:19 | NUR ---
HAND-OFF: Report given to ALFONSO Palomares.
--- NOTE | 2018-08-02 07:20 | NUR ---
NURSE NOTES: Pt in bed a/o x 4, NPO as she is having gastric emptying procedure this am. Pt in no acute distress, denies SOB, chest pain. Pt verbalized being able to urinate without problems. Patent IV SL to left AC. Pt left in bed in low position, call light within reach, bed alarm on, arm band checked.
--- NOTE | 2018-08-02 10:02 | NUR ---
NURSE NOTES: Spoke to Ton from radiology, per him pt has to be on strict NPO for the procedure. Meds held this am. VS stable, will continue to monitor.
--- NOTE | 2018-08-02 10:06 | Endoscopy Procedure Note ---
Endoscopy Procedure Note General Indication for Procedure: vomiting Procedures Performed: EGD Operative Findings/Diagnosis: normal Specimen: yes Pt Tolerated Procedure Well: Yes Estimated Blood Loss: none Anesthesia Anesthesiologist: see report Anesthesia: moderate sedation Medications Medication Given: see anesthesia record Inserted Devices Implant(s) used?: No GI Core Measures 50 yrs or older w/o bx or poly: Not Applicable 10yrs. F/U not recommended: Not Applicable If not recommended, why?: Jesus Zuleta MD Aug 02, 2018 10:06
--- NOTE | 2018-08-02 10:07 | Brief Operative Note ---
Immediate Post Operative Note Operative Note Chief Complaint: vomiting Pre-op Diagnosis: vomiting Procedure: EGD/bx Surgeon: lelia Anesthesiologist: see report Anesthesia: MAC Specimen: yes Complications: none Condition: stable Fluids: recorded Estimated Blood Loss: none Drains: none Implant(s) used?: No Jesus Zuleta MD Aug 02, 2018 10:07
--- NOTE | 2018-08-02 11:17 | General Progress Note ---
Assessment/Plan Assessment/Plan Assessment - Diarrhea - resolved - still with occ vomiting - RA - SIBO - HTN - Obesity - mild diverticulosis - Fibromyalgia - chronic constipation - h/o anemia - smoking history Recommendations - Gastric emptying study today - If negative --> SBFT - check stool studies - still pending - PPI - anti- emetics - IV hydration Subjective Allergies: Coded Allergies: No Known Allergies (Unverified , 07/28/18) Subjective awaiting nuclear med study now states has had intermittent small volume emesis for few years no abd pain, just some "tightening", relieved by emesis s/p priyanka and LEVON Objective Last 24 Hour Vital Signs Date Time Temp Pulse Resp B/P (MAP) Pulse Ox O2 Delivery O2 Flow Rate FiO2 08/02/18 09:00 Room Air 08/02/18 08:00 98.6 53 20 147/71 (96) 99 08/02/18 04:00 98.5 55 18 128/71 (90) 99 08/02/18 00:00 98.0 49 18 148/68 (94) 99 08/01/18 21:00 54 158/80 08/01/18 20:04 Room Air 08/01/18 20:00 97.8 54 18 158/80 (106) 99 08/01/18 18:37 Room Air 08/01/18 16:04 97.3 08/01/18 16:00 98.1 52 18 147/76 (99) 97 08/01/18 12:00 97.3 58 18 138/64 (88) 98 Intake and Output 08/01/18 08/02/18 19:00 07:00 Intake Total 1865 ml 75 ml Balance 1865 ml 75 ml Intake Oral 1000 ml IV Total 865 ml 75 ml # Voids 7 2 # Bowel Movements 1 Laboratory Tests 08/02/18 05:45: White Blood Count 7.9, Red Blood Count 4.06L, Hemoglobin 12.1, Hematocrit 35.3L , Mean Corpuscular Volume 87, Mean Corpuscular Hemoglobin 29.7, Mean Corpuscular Hemoglobin Concent 34.2, Red Cell Distribution Width 12.6, Platelet Count 171, Mean Platelet Volume 6.9, Neutrophils (%) (Auto) 46.1, Lymphocytes (% ) (Auto) 41.5, Monocytes (%) (Auto) 8.8, Eosinophils (%) (Auto) 3.0, Basophils ( %) (Auto) 0.6, Sodium Level 141, Potassium Level 4.4, Chloride Level 107, Carbon Dioxide Level 29, Anion Gap 5, Blood Urea Nitrogen 15, Creatinine 1.2, Estimat Glomerular Filtration Rate , Glucose Level 95, Calcium Level 9.1, Total Bilirubin 0.6, Aspartate Amino Transf (AST/SGOT) 27, Alanine Aminotransferase ( ALT/SGPT) 23, Alkaline Phosphatase 88, Pro-B-Type Natriuretic Peptide 300H, Total Protein 6.6, Albumin 3.1L, Globulin 3.5, Albumin/Globulin Ratio 0.9L Height (Feet): 5 Height (Inches): 5.00 Weight (Pounds): 190 Jesus Zuleta MD Aug 02, 2018 11:17
--- NOTE | 2018-08-02 13:29 | Diagnostic Imaging Report ---
Indication: Dyspnea Comparison: None A single view chest radiograph was obtained. Findings: Cardiomediastinal appearance is within normal limits for age. The lungs are clear. Pulmonary vascularity is appropriate. The diaphragmatic contour is smooth and costophrenic angles are sharp. No pleural effusions are identified. The bones are unremarkable. Impression: No acute findings
--- NOTE | 2018-08-02 14:25 | NUR ---
Nuclear Medicine Gastric Emptying scan complete.
[2018-08-02] MEDS: Heparin 5000 units/ml inj SUBQ SCH ×2 (14:29→21:19)
[2018-08-02] MEDS: Pantoprazole Inj IVP SCH (14:29)
[2018-08-02] MEDS: Atenolol 25mg tab ORAL SCH ×2 (14:29→21:18)
[2018-08-02] MEDS ORDERED: ZOFRAN4 M1 ORAL (15:12)
--- NOTE | 2018-08-02 15:14 | Pulmonology Progress Note ---
Assessment/Plan Problems: (1) History of hypertension (2) Dehydration, moderate (3) Abdominal pain Assessment/Plan symptomatic treatment f/u GI recommendations ate well last night Gastric emptying study is underway/ dvt prophylaxis dc planning Subjective ROS Limited/Unobtainable: No Interval Events: eating well, endoscopy done Constitutional: Reports: no symptoms HEENT: Repors: no symptoms Allergies: Coded Allergies: No Known Allergies (Unverified , 07/28/18) Objective Last 24 Hour Vital Signs Date Time Temp Pulse Resp B/P (MAP) Pulse Ox O2 Delivery O2 Flow Rate FiO2 08/02/18 14:29 57 140/70 08/02/18 14:29 57 140/70 08/02/18 14:25 52 153/73 (99) 08/02/18 12:00 98.2 57 20 140/70 (93) 97 08/02/18 09:00 Room Air 08/02/18 08:00 98.6 53 20 147/71 (96) 99 08/02/18 04:00 98.5 55 18 128/71 (90) 99 08/02/18 00:00 98.0 49 18 148/68 (94) 99 08/01/18 21:00 54 158/80 08/01/18 20:04 Room Air 08/01/18 20:00 97.8 54 18 158/80 (106) 99 08/01/18 18:37 Room Air 08/01/18 16:04 97.3 08/01/18 16:00 98.1 52 18 147/76 (99) 97 Intake and Output 08/01/18 08/02/18 19:00 07:00 Intake Total 1865 ml 75 ml Balance 1865 ml 75 ml Intake Oral 1000 ml IV Total 865 ml 75 ml # Voids 7 2 # Bowel Movements 1 General Appearance: WD/WN HEENT: normocephalic, atraumatic Respiratory/Chest: chest wall non-tender, lungs clear Breasts: no masses Cardiovascular: normal peripheral pulses, normal rate Genitourinary: normal external genitalia Extremities: no cyanosis Skin: no rash 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 Lymphatic: no neck adenopathy Microbiology Date/Time Source Procedure Growth Status 08/01/18 06:45 Stool Stool Culture Pending Resulted 08/01/18 06:45 Stool Clostridium difficile Toxin Assay - Final Resulted Laboratory Tests 08/02/18 05:45: White Blood Count 7.9, Red Blood Count 4.06L, Hemoglobin 12.1, Hematocrit 35.3L , Mean Corpuscular Volume 87, Mean Corpuscular Hemoglobin 29.7, Mean Corpuscular Hemoglobin Concent 34.2, Red Cell Distribution Width 12.6, Platelet Count 171, Mean Platelet Volume 6.9, Neutrophils (%) (Auto) 46.1, Lymphocytes (% ) (Auto) 41.5, Monocytes (%) (Auto) 8.8, Eosinophils (%) (Auto) 3.0, Basophils ( %) (Auto) 0.6, Sodium Level 141, Potassium Level 4.4, Chloride Level 107, Carbon Dioxide Level 29, Anion Gap 5, Blood Urea Nitrogen 15, Creatinine 1.2, Estimat Glomerular Filtration Rate , Glucose Level 95, Calcium Level 9.1, Total Bilirubin 0.6, Aspartate Amino Transf (AST/SGOT) 27, Alanine Aminotransferase ( ALT/SGPT) 23, Alkaline Phosphatase 88, Pro-B-Type Natriuretic Peptide 300H, Total Protein 6.6, Albumin 3.1L, Globulin 3.5, Albumin/Globulin Ratio 0.9L Current Medications Medications (Trade) Dose Ordered Sig/Dominga Route PRN Reason Start Time Stop Time Status Last Admin Dose Admin Acetaminophen (Tylenol) 650 mg Q6H PRN ORAL Mild Pain/Temp > 100.5 07/28/18 18:15 08/27/18 18:14 08/01/18 15:34 Acetaminophen/ Hydrocodone Bitart ([place] 5/325) 1 tab Q6H PRN ORAL Mod-severe Pain (Pain 4-10) 07/28/18 18:15 08/04/18 18:14 07/31/18 12:54 Amlodipine Besylate (Norvasc) 2.5 mg DAILY ORAL 07/29/18 09:00 08/28/18 08:59 08/02/18 14:29 Atenolol (Tenormin) 25 mg Q12HR ORAL 07/30/18 21:00 08/29/18 20:59 08/02/18 14:29 Heparin Sodium (Porcine) (Heparin 5000 units/ml) 5,000 units EVERY 12 HOURS SUBQ 07/28/18 21:00 08/27/18 20:59 08/02/18 14:29 Morphine Sulfate (Morphine Sulfate) 2 mg Q4H PRN IVP Severe Pain (Pain Scale 7-10) 07/28/18 21:00 08/04/18 20:59 07/29/18 10:07 Ondansetron HCl (Zofran) 4 mg EVERY 4 HOURS PRN IVP Nausea & Vomiting 07/28/18 18:15 08/27/18 18:14 07/28/18 20:28 Pantoprazole (Protonix) 40 mg DAILY IVP 07/29/18 18:47 08/28/18 18:46 08/02/18 14:29 Asmita Thomas MD Aug 02, 2018 15:14
--- NOTE | 2018-08-02 15:36 | NUR ---
Acknowledged dc order from Dr. Thomas. Informed him per pt, Dr. Connor mentioned he was going to do another study in the AM and the pt did not have a ride home today. Per Dr. Thomas, ok to stay. Will continue to monitor
--- NOTE | 2018-08-02 16:12 | Internal Med Progress Note ---
Subjective Date of Service: Aug 02, 2018 Physician Name Salvador Rachel Attending Physician Maurice Good MD Current Medications Medications (Trade) Dose Ordered Sig/Dominga Route PRN Reason Start Time Stop Time Status Last Admin Dose Admin Acetaminophen (Tylenol) 650 mg Q6H PRN ORAL Mild Pain/Temp > 100.5 07/28/18 18:15 08/27/18 18:14 08/01/18 15:34 Acetaminophen/ Hydrocodone Bitart ([place] 5/325) 1 tab Q6H PRN ORAL Mod-severe Pain (Pain 4-10) 07/28/18 18:15 08/04/18 18:14 07/31/18 12:54 Amlodipine Besylate (Norvasc) 2.5 mg DAILY ORAL 07/29/18 09:00 08/28/18 08:59 08/02/18 14:29 Atenolol (Tenormin) 25 mg Q12HR ORAL 07/30/18 21:00 08/29/18 20:59 08/02/18 14:29 Heparin Sodium (Porcine) (Heparin 5000 units/ml) 5,000 units EVERY 12 HOURS SUBQ 07/28/18 21:00 08/27/18 20:59 08/02/18 14:29 Morphine Sulfate (Morphine Sulfate) 2 mg Q4H PRN IVP Severe Pain (Pain Scale 7-10) 07/28/18 21:00 08/04/18 20:59 07/29/18 10:07 Ondansetron HCl (Zofran) 4 mg EVERY 4 HOURS PRN IVP Nausea & Vomiting 07/28/18 18:15 08/27/18 18:14 07/28/18 20:28 Pantoprazole (Protonix) 40 mg DAILY IVP 07/29/18 18:47 08/28/18 18:46 08/02/18 14:29 Allergies: Coded Allergies: No Known Allergies (Unverified , 07/28/18) ROS Limited/Unobtainable: No Constitutional: Reports: no symptoms HEENT: Reports: no symptoms Cardiovascular: Reports: no symptoms Respiratory: Reports: no symptoms Gastrointestinal/Abdominal: Reports: nausea Genitourinary: Reports: no symptoms Neurologic/Psychiatric: Reports: no symptoms Subjective 73 YO F admitted with abdominal pain, nausea and diarrhea. Cover for Int Med- DR Good. Tolerating regular diet. Await endoscopy and nuclear med gastric emtying study 08/02/18 Objective Last Vital Signs Date Time Temp Pulse Resp B/P (MAP) Pulse Ox O2 Delivery O2 Flow Rate FiO2 08/02/18 14:29 57 140/70 08/02/18 12:00 98.2 20 97 08/02/18 09:00 Room Air 08/01/18 09:13 3 Laboratory Tests Test 08/02/18 05:45 White Blood Count 7.9 K/UL (4.8-10.8) Red Blood Count 4.06 M/UL (4.20-5.40) L Hemoglobin 12.1 G/DL (12.0-16.0) Hematocrit 35.3 % (37.0-47.0) L Mean Corpuscular Volume 87 FL (80-99) Mean Corpuscular Hemoglobin 29.7 PG (27.0-31.0) Mean Corpuscular Hemoglobin Concent 34.2 G/DL (32.0-36.0) Red Cell Distribution Width 12.6 % (11.6-14.8) Platelet Count 171 K/UL (150-450) Mean Platelet Volume 6.9 FL (6.5-10.1) Neutrophils (%) (Auto) 46.1 % (45.0-75.0) Lymphocytes (%) (Auto) 41.5 % (20.0-45.0) Monocytes (%) (Auto) 8.8 % (1.0-10.0) Eosinophils (%) (Auto) 3.0 % (0.0-3.0) Basophils (%) (Auto) 0.6 % (0.0-2.0) Sodium Level 141 MMOL/L (136-145) Potassium Level 4.4 MMOL/L (3.5-5.1) Chloride Level 107 MMOL/L (98-107) Carbon Dioxide Level 29 MMOL/L (21-32) Anion Gap 5 mmol/L (5-15) Blood Urea Nitrogen 15 mg/dL (7-18) Creatinine 1.2 MG/DL (0.55-1.30) Estimat Glomerular Filtration Rate mL/min (>60) Glucose Level 95 MG/DL (74-106) Calcium Level 9.1 MG/DL (8.5-10.1) Total Bilirubin 0.6 MG/DL (0.2-1.0) Aspartate Amino Transf (AST/SGOT) 27 U/L (15-37) Alanine Aminotransferase (ALT/SGPT) 23 U/L (12-78) Alkaline Phosphatase 88 U/L (46-116) Pro-B-Type Natriuretic Peptide 300 pg/mL (0-125) H Total Protein 6.6 G/DL (6.4-8.2) Albumin 3.1 G/DL (3.4-5.0) L Globulin 3.5 g/dL Albumin/Globulin Ratio 0.9 (1.0-2.7) L Microbiology Date/Time Source Procedure Growth Status 08/01/18 06:45 Stool Stool Culture Pending Resulted 08/01/18 06:45 Stool Clostridium difficile Toxin Assay - Final Resulted Intake and Output 08/01/18 08/02/18 19:00 07:00 Intake Total 1865 ml 75 ml Balance 1865 ml 75 ml Intake Oral 1000 ml IV Total 865 ml 75 ml # Voids 7 2 # Bowel Movements 1 Objective PHYSICAL EXAMINATION: GENERAL: The patient is a well-developed and well-nourished female, in no apparent distress. HEENT: Eyes, pupils are equal and responsive to light and accommodation. Extraocular movements are intact. NECK: Supple. No lymphadenopathy. CHEST: Lungs are clear to auscultation bilaterally without wheezes or rales. CARDIOVASCULAR: Regular rhythm and rate. S1-S2 are normal without murmurs, rubs, or gallops. ABDOMEN: Soft, nondistended with decreased bowel sounds. There is tenderness to palpation to right lower quadrant. No evidence of rebound or guarding noted. EXTREMITIES: Negative for clubbing, cyanosis, or edema. RECTAL/GENITAL: Refused. NEUROLOGIC: Cranial nerves II through XII are grossly intact without focal deficits. Motor strength is 5/5 bilaterally. Deep tendon reflexes are 2+ plantar. Assessment/Plan Assessment/Plan ASSESSMENT: This is a 73-year-old female with: 1. Abdominal pain. 2. Nausea and vomiting. 3. Diarrhea. 4. Right lower quadrant pain. 5. Hypertension. TREATMENT: 1. Abdominal pain/nausea/vomiting/diarrhea. A Gastroenterology consultation has been obtained with Dr. Zuleta. The patient is currently receiving intravenous Zofran for nausea and vomiting. Stool cultures are pending. We will follow recommendations of Gastroenterology. 2. Right lower quadrant pain. The patient's white count is within normal limits. Appendicitis has been ruled out with white count. A CT scan of the abdomen showed diverticulosis without diverticulitis 3. Hypertension. Continue amlodipine and atenolol as above. 4. Tolerating regular diet 5. Await Endoscopy scheduled 08/02/18 6. Await Nuclear Medicine gastric emptying study 08/02/18 6. Discharge planning Salvador Rachel MD Aug 02, 2018 16:12
--- NOTE | 2018-08-02 19:30 | NUR ---
NURSE NOTES: RECEIVED PATIENT LYING IN BED, AWAKE, ALERT/ORIENTED X4, VERBALLY RESPONSIVE, DENIES PAIN, NO SIGNS AND SYMPTOMS OF ACUTE CARDIO RESPIRATORY DISTRESS/SHORTNESS OF BREATH, DENIES CHEST PAIN, NO PERIPHERAL EDEMA NOTED. S/P EGD, NO ILL EFFECT RELATING TO PROCEDURE/NUCLEAR MED PENDING. NO REPORT OF GI DISCOMFORT, NO N/V/D, BATHROOM PRIVILEGES. SIDE RAILS UP X2 FOR MOBILITY, BED IN LOWEST POSITION FOR SAFETY. CALL LIGHT WITHIN REACH. NAD.
--- NOTE | 2018-08-02 20:05 | NUR ---
HAND-OFF: Report given to ALFONSO Vasques. Pt left in bed in low position, call light within reach, bed locked. Pt in no acute distress, a/o x 4. Patent IV to LESLIE JOHNSON.
[2018-08-03] VITALS: BP 147/73
--- NOTE | 2018-08-03 00:42 | Procedure Note ---
DATE OF PROCEDURE: 08/01/2018 PROCEDURE: Upper gastrointestinal endoscopy with biopsy. SURGEON: Jesus Zuleta M.D. ANESTHESIA: Please see separate anesthesiologist notes for details. PRE-ENDOSCOPIC DIAGNOSIS: Vomiting. POST-ENDOSCOPIC DIAGNOSIS: No ulcers or other pathology identified status post biopsy. DESCRIPTION OF PROCEDURE: The procedure, its risks, indications, alternatives, and possible complications were explained to the patient and informed consent was obtained. The patient was then sedated. A diagnostic upper endoscope was introduced through the oropharynx and advanced to the duodenum. The endoscope was then gradually withdrawn and mucosa examined carefully. Examination of the upper gastrointestinal mucosa did not reveal any pathology. Biopsies were sent to pathology for review. The endoscope was removed. The patient was sent to recovery in good condition. COMPLICATIONS: None. RECOMMENDATIONS: 1. Followup biopsy results. 2. Check nuclear medicine gastric emptying study to rule out gastroparesis. Jesus Zuleta M.D. DR: Smita JOB#: [id number] CC:
[2018-08-03 04:00] VITALS: BP 135/64
--- NOTE | 2018-08-03 06:08 | NUR ---
NURSE NOTES: RESTED WELL THROUGHOUT THE NIGHT, NO SIGNIFICANT CHANGE OF CONDITION NOTED. SAFETY MAINTAINED. NAD.
[2018-08-03 06:49] LABS: BASOPHILS % (AUTO) 0.9 % (0.0-2.0); EOSINOPHILS % (AUTO) 3.1 % (0.0-3.0); HEMATOCRIT 36.6 % (37.0-47.0); HEMOGLOBIN 12.6 G/DL (12.0-16.0); LYMPHOCYTES % (AUTO) 47.6 % (20.0-45.0); MEAN CORPUSCULAR VOLUME 87 FL (80-99); MONOCYTES % (AUTO) 7.8 % (1.0-10.0); NEUTROPHILS % (AUTO) 40.6 % (45.0-75.0); PLATELET COUNT 177 K/UL (150-450); RED CELL DISTRIBUTION WIDTH 12.9 % (11.6-14.8); WHITE BLOOD COUNT 8.8 K/UL (4.8-10.8)
[2018-08-03 06:50] LABS: ANION GAP 7 mmol/L (5-15); BLOOD UREA NITROGEN 17 mg/dL (7-18); CALCIUM 9.1 MG/DL (8.5-10.1); CARBON DIOXIDE 28 MMOL/L (21-32); CHLORIDE 106 MMOL/L (98-107); CREATININE 1.3 MG/DL (0.55-1.30); POTASSIUM 4.1 MMOL/L (3.5-5.1); SODIUM 141 MMOL/L (136-145)
--- NOTE | 2018-08-03 07:32 | NUR ---
Pt in bed a/o x 4 in no acute distress. Pt able to verbalize needs. Patent IV to left AC SL. Pt abd is soft, non tender. Pt eating breakfast, tolerating well. Pt left in room with bed locked and low position, skid socks on, board updated, call light within reach.
--- NOTE | 2018-08-03 07:35 | NUR ---
HAND-OFF: Report given to kitty snow.
[2018-08-03 08:00] VITALS: BP 140/72
[2018-08-03] MEDS: Atenolol 25mg tab ORAL SCH (09:35)
[2018-08-03] MEDS: Pantoprazole Inj IVP SCH (09:35)
[2018-08-03] MEDS: Heparin 5000 units/ml inj SUBQ SCH (09:37)
[2018-08-03 12:00] VITALS: BP 128/69
--- NOTE | 2018-08-03 12:17 | NUR ---
RD ASSESSMENT & RECOMMENDATIONS SEE CARE ACTIVITY FOR COMPLETE ASSESSMENT DAILY ESTIMATED NEEDS: Needs based on cardiac, obese 64.7kg adj 25-30 kcals/kg 2141-0412 total kcals 1-1.2 g protein/kg 65-78 g total protein 25-30 mL/kg 7825-4252 total fluid mLs NUTRITION DIAGNOSIS: Altered GI fxn etiology unknown as evidenced by pt adm w/ N/V/D, s/p gastric studying study, results pending, diet advanced w/ variable po intake. CURRENT DIET: Regular PO DIET RECOMMENDATIONS: [place] / Soft diet ADDITIONAL RECOMMENDATIONS: 1) Obtain a standing weight 2) Consider 5 small meals for improved tolerance 3) Monitor for BM
--- NOTE | 2018-08-03 14:24 | Pulmonology Progress Note ---
Assessment/Plan Problems: (1) History of hypertension (2) Dehydration, moderate (3) Abdominal pain Assessment/Plan eating well symptomatic treatment f/u GI recommendations ate well last night Gastric emptying study is underway/ dvt prophylaxis dc planning pt could go home Subjective ROS Limited/Unobtainable: No Constitutional: Reports: no symptoms Respiratory: Reports: no symptoms Allergies: Coded Allergies: No Known Allergies (Unverified , 07/28/18) Objective Last 24 Hour Vital Signs Date Time Temp Pulse Resp B/P (MAP) Pulse Ox O2 Delivery O2 Flow Rate FiO2 08/03/18 09:35 53 140/72 08/03/18 09:35 53 140/72 08/03/18 09:00 Room Air 08/03/18 08:00 97.7 53 18 140/72 (94) 97 08/03/18 04:00 97.9 53 18 135/64 (87) 98 08/03/18 00:00 97.9 54 20 147/73 (97) 100 08/02/18 21:18 63 140/69 08/02/18 21:00 Room Air 08/02/18 20:00 98.2 58 18 135/62 (86) 97 08/02/18 16:00 98.4 54 20 142/58 (86) 97 08/02/18 14:29 57 140/70 08/02/18 14:29 57 140/70 08/02/18 14:25 52 153/73 (99) Intake and Output 08/02/18 08/03/18 19:00 07:00 Intake Total 240 ml 120 ml Output Total 1300 ml Balance -1060 ml 120 ml Intake Oral 240 ml 120 ml Output Urine Total 1300 ml # Voids 1 General Appearance: WD/WN, no acute distress HEENT: atraumatic, PERRL Respiratory/Chest: lungs clear, normal breath sounds Breasts: no masses Cardiovascular: normal peripheral pulses, no gallop/murmur Abdomen: soft, non tender, non distended Genitourinary: normal external genitalia Skin: no rash Microbiology Date/Time Source Procedure Growth Status 08/01/18 06:45 Stool Ova and Parasites - Final Complete 08/01/18 06:45 Stool Ova and Parasite Result 1 - Final Complete 08/01/18 06:45 Stool Stool Culture - Preliminary NO SALMONELLA,SHIGELLA,OR CAMPYLOBACT... Resulted 08/01/18 06:45 Stool Clostridium difficile Toxin Assay - Final Resulted Laboratory Tests 08/03/18 05:55: White Blood Count 8.8, Red Blood Count 4.20, Hemoglobin 12.6, Hematocrit 36.6L, Mean Corpuscular Volume 87, Mean Corpuscular Hemoglobin 30.0, Mean Corpuscular Hemoglobin Concent 34.4, Red Cell Distribution Width 12.9, Platelet Count 177, Mean Platelet Volume 6.9, Neutrophils (%) (Auto) 40.6L, Lymphocytes (%) (Auto) 47.6H, Monocytes (%) (Auto) 7.8, Eosinophils (%) (Auto) 3.1H, Basophils (%) ( Auto) 0.9, Sodium Level 141, Potassium Level 4.1, Chloride Level 106, Carbon Dioxide Level 28, Anion Gap 7, Blood Urea Nitrogen 17, Creatinine 1.3, Estimat Glomerular Filtration Rate , Glucose Level 102, Calcium Level 9.1 Current Medications Medications (Trade) Dose Ordered Sig/Dominga Route PRN Reason Start Time Stop Time Status Last Admin Dose Admin Acetaminophen (Tylenol) 650 mg Q6H PRN ORAL Mild Pain/Temp > 100.5 07/28/18 18:15 08/27/18 18:14 08/01/18 15:34 Acetaminophen/ Hydrocodone Bitart ([place] 5/325) 1 tab Q6H PRN ORAL Mod-severe Pain (Pain 4-10) 07/28/18 18:15 08/04/18 18:14 07/31/18 12:54 Amlodipine Besylate (Norvasc) 2.5 mg DAILY ORAL 07/29/18 09:00 08/28/18 08:59 08/03/18 09:35 Atenolol (Tenormin) 25 mg Q12HR ORAL 07/30/18 21:00 08/29/18 20:59 08/03/18 09:35 Heparin Sodium (Porcine) (Heparin 5000 units/ml) 5,000 units EVERY 12 HOURS SUBQ 07/28/18 21:00 08/27/18 20:59 08/03/18 09:37 Morphine Sulfate (Morphine Sulfate) 2 mg Q4H PRN IVP Severe Pain (Pain Scale 7-10) 07/28/18 21:00 08/04/18 20:59 12/30/18 10:07 Ondansetron HCl (Zofran) 4 mg EVERY 4 HOURS PRN IVP Nausea & Vomiting 07/28/18 18:15 08/27/18 18:14 07/28/18 20:28 Pantoprazole (Protonix) 40 mg DAILY IVP 07/29/18 18:47 08/28/18 18:46 08/03/18 09:35 Asmita Thomas MD Aug 03, 2018 14:24
--- NOTE | 2018-08-03 15:23 | Discharge Summary ---
Discharge Summary Hospital Course Date of Admission Jul 28, 2018 at 14:12 Date of Discharge Admitting Diagnosis Dehydration, Unable to Collect urine HPI Ying Lopez is a 73 year old female who was admitted on Jul 28, 2018 at 14:12 for Dehydration, Unable To Collect Urine Hospital Course discharge monica rangel Last 24 Hour Vital Signs Date Time Temp Pulse Resp B/P (MAP) Pulse Ox O2 Delivery O2 Flow Rate FiO2 08/03/18 09:35 53 140/72 08/03/18 09:35 53 140/72 08/03/18 09:00 Room Air 08/03/18 08:00 97.7 53 18 140/72 (94) 97 08/03/18 04:00 97.9 53 18 135/64 (87) 98 08/03/18 00:00 97.9 54 20 147/73 (97) 100 08/02/18 21:18 63 140/69 08/02/18 21:00 Room Air 08/02/18 20:00 98.2 58 18 135/62 (86) 97 08/02/18 16:00 98.4 54 20 142/58 (86) 97 Physical Exam\ General: No acute distress, awake and alert HEENT: NCAT, sclera anicteric, PERRL, EOMI. Neck: Supple, no significant jugular venous distention, Lungs: Good inspiratory effort, no accessory muscle use, clear to auscultation bilaterally, no Wheeze or Rales. Heart: Regular rate and rhythm, normal S1/S2, no murmur. Abdomen: soft, nontender, nondistended. Normoactive bowel sounds, mild obesity, / Rectal: Refused and deferred. Extremities: No Cyanosis , clubbing or edema. Neuro: A&O x 3, Able to move all extremities Skin: warm, no rashes or lesions Psych: Normal mood and affect Discharge Discharge Disposition Patient was discharged to Maurice Good MD Aug 03, 2018 15:23
[2018-08-03 16:00] VITALS: BP 131/72
--- NOTE | 2018-08-03 17:14 | NUR ---
pt dc'd in stable condition with all belongings, IV to left AC removed, no signs of bleeding. Pt was hand given discharge paperwork. Pt walked downstairs, met with son in law Ahsan who is taking her home.
--- NOTE | 2018-08-03 19:30 | Discharge Summary ---
DATE OF ADMISSION: 07/28/2018 DATE OF DISCHARGE: 08/03/2018 HISTORY OF PRESENT ILLNESS: This is a 73 years old female with past medical history significant for hypertension, rheumatoid arthritis, who was presented to the hospital complaining about nausea, vomiting, diarrhea, and abdominal pain. Shortly after initial evaluation, the patient was admitted to the hospital with intractable nausea and vomiting associated with abdominal pain. Throughout the hospital course, the patient was consulted with Dr. Jesus Zuleta from Gastroenterology and had an extensive gastrointestinal workup done including CT scan of the abdomen pelvic, no definite acute process, no evidence of the small bowel obstruction, trace free pelvic fluid of uncertain significance, no physiologic, postmenopausal female, colonic diverticulosis, no evidence of diverticulitis, surgical absence of the uterus and gallbladder, bilateral renal cysts, bilateral subcentimeter low attenuation of the renal lesion too small to characterize most likely benign simple cyst. The patient throughout the hospital course underwent an esophagogastroduodenoscopy on 08/01/2018, which shows that there was no ulcer or other pathology identified status post biopsy. The patient underwent gastric emptying study, was essentially unremarkable and the patient is being discharged home today to be followed up with Dr. Jesus Zuleta as outpatient for followup within one week. FINAL DIAGNOSES: 1. Intractable nausea and vomiting with abdominal pain. 2. Diarrhea, resolved. 3. Rheumatoid arthritis. 4. Hypertension. 5. Mild obesity. 6. Mild diverticulitis. 7. Fibromyalgia. 8. Anemia. 9. Chronic smoker. MEDICATIONS ON DISCHARGE: Continue discharge medication list. ACTIVITY: As tolerated. DIET: Would be a low-salt diet as tolerated. The patient tolerated diet today and will be discharged home to be followed up with as outpatient. Maurice Good M.D. DR: CALEB JOB#: [id number] CC:
--- NOTE | 2018-08-04 15:49 | Diagnostic Imaging Report ---
Indication: nausea and vomiting Technique: 25.2 mCi Tc99m sulfur colloid given with solid food. Dynamic imaging of the stomach obtained up to 240 minutes. Gastric activity measured over time. Comparison: None Findings: Dynamic imaging of the stomach performed. Time activity curve generated. Normal half life of emptying demonstrated indicating normal gastric transit and emptying. The half life of emptying was calculated at 90 minutes. Normal half life is between 40 and 110 minutes. IMPRESSION: Normal gastric emptying study
== END 2018-08-03 17:22 | disposition home or self-care (01) | DRG 392 ==
LOC: EMR 14:10 → 3E 14:12 → EDBEDREQ 15:16 → CMPBEDREQ 15:34 → 4E 16:14
PROC: 0DB68ZX Excision of Stomach, Via Natural or Artificial Opening Endoscopic, Diagnostic (ICD-10-PCS; 2018-08-01)
PROC: 0DB38ZX Excision of Lower Esophagus, Via Natural or Artificial Opening Endoscopic, Diagnostic (ICD-10-PCS; 2018-08-01)
PROC: 0DB78ZX Excision of Stomach, Pylorus, Via Natural or Artificial Opening Endoscopic, Diagnostic (ICD-10-PCS; 2018-08-01)
PROC: 0DB98ZX Excision of Duodenum, Via Natural or Artificial Opening Endoscopic, Diagnostic (ICD-10-PCS; principal; 2018-08-01 08:45)
DX: K52.9 Noninfective gastroenteritis and colitis, unspecified (principal); E86.0 Dehydration; R10.31 Right lower quadrant pain; I10 Essential (primary) hypertension; Z96.653 Presence of artificial knee joint, bilateral; Z87.891 Personal history of nicotine dependence; Z90.49 Acquired absence of other specified parts of digestive tract; Z90.710 Acquired absence of both cervix and uterus; R11.2 Nausea with vomiting, unspecified; M06.9 Rheumatoid arthritis, unspecified; E66.9 Obesity, unspecified; M79.7 Fibromyalgia; D64.9 Anemia, unspecified; K57.90 Diverticulosis of intestine, part unspecified, without perforation or abscess without bleeding
CPT/HCPCS: 36415; 71045; 74177; 78264; 80048; 80053; 81003; 83690; 83735; 83880; 84100; 85007; 85025; 87045; 87324; 94003; 94150; 96361; 96374; 96375; 99285; J2405